=== PATIENT | male | born 1930 | race Caucasian/White ===

== ENCOUNTER 2018-10-22 12:19 | Outpatient (CLI) | payer MEDICARE, OTHER ==
--- NOTE | 2018-10-22 14:39 | CT ---
CT HEAD WITHOUT CONTRAST: 10/22/2018 HISTORY: Fall one week ago. COMPARISON: 05/17/2015 TECHNIQUE: Axial CT imaging at 5 mm intervals, from the vertex through the skull base, with coronal and sagittal reformatted imaging. FINDINGS: There is a new acute subdural hematoma on the left. There is a component in the left frontotemporal region, measuring 8-9 mm in transverse dimension, and there is a component in the left temporal regio n, measuring 7 mm in transverse dimension. There is a probable small component along the anterior in terhemispheric fissure, on image 22, measuring 4 mm. There is small volume subarachnoid blood in the occipital region, on the left, on axial image 16. There is probable subarachnoid blood, of very sma ll volume, within the posterior aspect of the sylvian fissure, on the left. There is no midline shif t. There is mass effect with flattening of the body and atrium of the left lateral ventricle. There is small volume intraventricular hemorrhage within the atrium of the left lateral ventricle. The imaged paranasal sinuses and mastoid air cells are well aerated. There is no displaced calvarium fracture. There is prominent degenerative change at the craniocervical junction, incompletely asses sed on this examination. There is polypoid mucosal thickening involving the maxillary sinus on the left. There is moderate cerebral volume loss. There is periventricular white matter hypodensity, and there is evidence of prior infarction in the parietal and frontal regions, on the right, IMPRESSION: Acute subarachnoid and subdural hemorrhage on the left. Small volume intraventricular hemorrhage on the left. Associated mass effect noted with flattening of the atrium of the left lateral ventricle. Dr. Urbina in the ER made aware at 12:58 p.m. on 10/22/2018. CODE CR POS: BERTHA
== END 2018-10-22 12:20 | disposition home or self-care (01) ==
LOC: NAV RAD 12:19
PROVIDERS: ATTEND Internal Medicine
DX: S09.90XD Unspecified injury of head, subsequent encounter (principal); S06.5X9D Traumatic subdural hemorrhage with loss of consciousness of unspecified duration, subsequent encounter; S06.6X9D Traumatic subarachnoid hemorrhage with loss of consciousness of unspecified duration, subsequent encounter
CPT/HCPCS: 70450

== ENCOUNTER 2018-10-22 12:40 | Emergency (ER) | payer MEDICARE, OTHER | END 2018-10-22 13:59 | disposition short-term general hospital (02) | LOC: NAV ER/OP 12:40 → NAV ERS 12:40 → EDSTATUS 13:04 → NAV ERS 13:59 | DX: S06.5X9A Traumatic subdural hemorrhage with loss of consciousness of unspecified duration, initial encounter (principal); S06.6X9A Traumatic subarachnoid hemorrhage with loss of consciousness of unspecified duration, initial encounter; I48.91 Unspecified atrial fibrillation; K21.9 Gastro-esophageal reflux disease without esophagitis; I10 Essential (primary) hypertension; M10.9 Gout, unspecified; Z87.891 Personal history of nicotine dependence; Z79.899 Other long term (current) drug therapy; Z79.82 Long term (current) use of aspirin; W06.XXXA Fall from bed, initial encounter | CPT/HCPCS: 70450 ==

== ENCOUNTER 2018-10-24 21:16 | Inpatient (IN) | payer MEDICARE, OTHER ==
[2018-10-24 22:35] VITALS: BMI 23.8
[2018-10-24] MEDS ORDERED: cefTRIAXone\\ROCEPHIN 1 GM in Sodium Chloride 0.9% 100 ML IVPB SCH (23:45)
[2018-10-25] MEDS ORDERED: Polyethylene Glycol 3350 17 GM Packet PO PRN (00:03)
[2018-10-25] MEDS: hydrALAZINE 25 MG TAB PO PRN ×2 (02:04→09:31)
[2018-10-25] MEDS: Multivitamin W/ Minerals 1 TAB PO SCH (09:31)
[2018-10-25] MEDS: Brimonidine Tartrate 0.2% Ophth Soln 5 ml Bottle EA EYE SCH ×3 (09:31→21:21)
[2018-10-25] MEDS: Allopurinol 100 MG TAB PO SCH (09:32)
[2018-10-25] MEDS: Potassium Chloride 20 MEQ TAB PO SCH (09:32)
[2018-10-25] MEDS: Carvedilol 25 MG TAB PO SCH ×2 (09:33→21:20)
[2018-10-25] MEDS: Escitalopram Oxalate 10 mg Tablet PO SCH (09:33)
[2018-10-25] MEDS: Ascorbic Acid 500 mg Chewable Tablet PO SCH ×2 (09:33→21:20)
[2018-10-25] MEDS: Amiodarone 200 MG TAB PO SCH (09:33)
[2018-10-25] MEDS: Folic Acid 1 MG TAB PO SCH (09:33)
[2018-10-25] MEDS: Lisinopril 20 MG TAB PO SCH (09:33)
[2018-10-25] MEDS: Mupirocin 2% Ointment 22 GM Tube TOP SCH (09:34)
[2018-10-25] MEDS: Dorzolamide HCl 2% Ophth Soln 10 ml Bottle EA EYE SCH ×3 (09:34→21:21)
[2018-10-25] MEDS: cefTRIAXone\\ROCEPHIN 1 GM in Sodium Chloride 0.9% 100 ML IVPB SCH (09:46)
--- NOTE | 2018-10-25 12:51 | PRG ---
DATE OF SERVICE: 10/25/2018 SUBJECTIVE: The patient feels well, sitting up, visiting with family, answering questions when spoken, but not volunteering to speak. He does appear to be appropriate, slept well through the night, ate well today. OBJECTIVE: VITAL SIGNS: Shows temperature is 97.4, blood pressure 176/84, respirations 20, O2 saturations 93% on room air. LUNGS: Clear. CARDIAC: Showed regular rhythm. ABDOMEN: Soft and nontender with PEG tube in place. SKIN/EXTREMITIES: Showed no edema, clubbing, or cyanosis. NEUROLOGICAL: Shows left-sided weakness, altered mental status with the patient oriented to person and place, and slow responses and significant difficulty with ataxia and disequilibrium. ASSESSMENT: 1. Acute subdural hematoma, being monitored closely, follow up with Neurosurgery in 2 to 3 weeks. 2. Labile hypertension, on carvedilol and lisinopril with p.r.n. hydralazine, and we will monitor closely. 3. History of aspiration pneumonia with no recurrent. We will monitor closely on regular diet. 4. Benign prostatic hypertrophy, stable with no evidence of retention. PLAN: 1. Continue PT/OT. 2. Continue to monitor vital signs closely for orthostasis. 3. Continue to monitor for aspiration. 4. We will treat escherichia coli urinary tract infection with Rocephin as resistant to oral antibiotics. Job ID: [id number]
--- NOTE | 2018-10-25 13:46 | HP ---
CHIEF COMPLAINT: Subdural hematoma. HISTORY OF PRESENT ILLNESS: The patient is an unfortunate 88-year-old white male who has undergone a left carotid endarterectomy 6 months ago with subsequent intraoperative stroke with right hemiparesis with right arm weakness and facial droop and slurred speech, which has improved greatly over the last several months in rehab. He did have complications of atrial fib in the past, but has not recurred in several months, but was still on only on beta blockade, but no amiodarone because of severe bradycardia. He was not on any anticoagulation because of risk of falling. He, however, was doing well at home when apparently he fell out of bed, hit the left side of his face. Several days prior to being seen in the office with no change in his focal findings, but with increased agitation and weakness, subsequently was sent to the ER, had a CT scan which showed a left traumatic subarachnoid hemorrhage and small subdural hematoma with no shift. He was admitted to [facility] where Neurosurgery felt that he was stable, followed him for several days, and then transferred him to [facility] for continued monitoring. PAST MEDICAL HISTORY: Also remarkable for labile hypertension, requirement of a PEG tube because of difficulty swallowing in the past with aspiration, but no recurrence at this time. He also has a history of benign prostatic hypertrophy, anxiety, gastroesophageal reflux, and macular degeneration. PAST SURGICAL HISTORY: Positive for the above-mentioned left carotid endarterectomy in 2018, right carpal tunnel surgery, and left knee surgery. FAMILY MEDICAL HISTORY: Positive for heart disease in mother. SOCIAL HISTORY: No alcohol or drug use, but did smoke until 20 years ago. Lives at home with his and [id number]. REVIEW OF SYSTEMS: Essentially negative, but the patient is a poor historian, and most history obtained from the . Typically, he denies headache or dizziness. PULMONARY: Denies cough, sputum production, or pneumonia. CARDIOVASCULAR: Denies chest pain, orthopnea, paroxysmal nocturnal dyspnea, or edema. GASTROINTESTINAL: Denies nausea or vomiting. SKIN/EXTREMITIES: Denies pain, but does have stiffness. NEUROLOGIC: Has some mild left-sided weakness, chronic from previous old CVA. PHYSICAL EXAMINATION: GENERAL: The patient is an elderly white male, lying in bed, no acute distress, oriented to person and place. VITAL SIGNS: Blood pressure is 162/91, temperature is 98, pulse 66, respirations 18, and O2 saturation is 93% on room air. LUNGS: Clear. CARDIAC: Showed regular rhythm. No S4. No other gallops or murmurs. ABDOMEN: Shows PEG tube in place, not being used, but being flushed. Soft, nontender. No masses or organomegaly. SKIN/EXTREMITIES: Show no edema, clubbing, or cyanosis. HEENT: Shows pupils are equal, round, and reactive to light and accommodation. There is a fading ecchymosis over the left periorbital area. NEUROLOGIC: Shows mild left-sided weakness, but the patient is slow in his responses, but appears to be appropriate and is oriented to person and possibly place. ASSESSMENT: 1. An 88-year-old white male with a history of a distant cerebrovascular accident, who has fallen and suffered a left subarachnoid hemorrhage and subdural hemorrhage. He has been felt to be stable by Neurosurgery and be admitted to [facility] to be monitored with PT and OT. He has no complaints, at this times appears to be more alert, but is still only speaking in single words. 2. Hypertension, labile, but controlled at this time on carvedilol and lisinopril. We will monitor for bradycardia and hypotension. 3. History of aspiration pneumonia, resolved now. Tolerating diet well with PEG tube in place and to be removed in the next month or 2. 4. Paroxysmal atrial fibrillation with no evidence of recurrence, only on beta blockade, and no anticoagulation. PLAN: 1. Continue PT and OT. 2. Continue to monitor vital signs and treat blood pressure accordingly. 3. Continue to monitor for aspiration. 4. Continue stress ulcer prophylaxis. Job ID: [id number]
[2018-10-25] MEDS: Tamsulosin HCl 0.4 MG CAP PO SCH (21:20)
[2018-10-25] MEDS: Atorvastatin Calcium 10 MG TAB PO SCH (21:20)
[2018-10-25] MEDS: Finasteride 5 MG TAB PO SCH (21:20)
[2018-10-25] MEDS: Famotidine 20 MG TAB PO SCH (21:20)
[2018-10-25] MEDS: Acetaminophen 325 MG TAB PO PRN (21:20)
[2018-10-25] MEDS: Melatonin 3 MG TAB PO PRN (21:20)
[2018-10-25] MEDS: risperiDONE 0.25 MG TAB PO SCH (21:20)
[2018-10-26] MEDS: Escitalopram Oxalate 10 mg Tablet PO SCH (09:02)
[2018-10-26] MEDS: Amiodarone 200 MG TAB PO SCH (09:02)
[2018-10-26] MEDS: Carvedilol 25 MG TAB PO SCH ×2 (09:02→20:04)
[2018-10-26] MEDS: Multivitamin W/ Minerals 1 TAB PO SCH (09:02)
[2018-10-26] MEDS: Allopurinol 100 MG TAB PO SCH (09:02)
[2018-10-26] MEDS: Dorzolamide HCl 2% Ophth Soln 10 ml Bottle EA EYE SCH ×3 (09:02→20:04)
[2018-10-26] MEDS: Lisinopril 20 MG TAB PO SCH (09:02)
[2018-10-26] MEDS: Ascorbic Acid 500 mg Chewable Tablet PO SCH ×2 (09:02→20:05)
[2018-10-26] MEDS: Brimonidine Tartrate 0.2% Ophth Soln 5 ml Bottle EA EYE SCH ×3 (09:02→20:04)
[2018-10-26] MEDS: Folic Acid 1 MG TAB PO SCH (09:02)
[2018-10-26] MEDS: Potassium Chloride 20 MEQ TAB PO SCH (09:02)
[2018-10-26] MEDS: cefTRIAXone\\ROCEPHIN 1 GM in Sodium Chloride 0.9% 100 ML IVPB SCH (09:03)
[2018-10-26] MEDS: Mupirocin 2% Ointment 22 GM Tube TOP SCH (09:03)
--- NOTE | 2018-10-26 15:41 | PRG ---
DATE OF SERVICE: 10/26/2018 SUBJECTIVE: Mr. Vazquez is resting comfortably in bed, just finished his bath. His is in the room. No concerns or questions. Discussed with nursing as well. OBJECTIVE: VITAL SIGNS: He is afebrile. Heart rate 63, respirations 20, oxygen saturation 94% on room air, and blood pressure 150/70. CARDIOVASCULAR: S1 and S2 plus. RESPIRATORY: Normal vesicular breath sounds. ABDOMEN: Soft, nontender. Bowel sounds in all quadrants. G-tube in place. EXTREMITIES: Without cyanosis or clubbing. Peripheral pulses are palpable, but decreased. CENTRAL NERVOUS SYSTEM: Awake and responsive. Generalized weakness. IMPRESSION: 1. Hypertension. 2. Dysphagia, requiring PEG tube placement. 3. Benign prostatic hypertrophy. 4. Gastroesophageal reflux disease. 5. Macular degeneration. 6. Carotid artery stenosis, status post carotid endarterectomy, resulting in an intraoperative stroke and right-sided hemiparesis. PLAN: 1. Continue current medications. 2. Nutritional support. 3. Aspiration precautions. 4. PEG tube care. 5. DVT and stress ulcer prophylaxis. 6. Decubitus precautions. 7. Physical therapy. 8. Routine laboratory values. 9. Discussed with the patient and spouse in detail. All questions answered. Job ID: [id number]
[2018-10-26] MEDS: risperiDONE 0.25 MG TAB PO SCH (20:04)
[2018-10-26] MEDS: Finasteride 5 MG TAB PO SCH (20:05)
[2018-10-26] MEDS: Tamsulosin HCl 0.4 MG CAP PO SCH (20:05)
[2018-10-26] MEDS: Famotidine 20 MG TAB PO SCH (20:05)
[2018-10-26] MEDS: Atorvastatin Calcium 10 MG TAB PO SCH (20:05)
[2018-10-26] MEDS: Melatonin 3 MG TAB PO PRN (20:05)
[2018-10-26] MEDS: Acetaminophen 325 MG TAB PO PRN (20:05)
[2018-10-27] MEDS: Brimonidine Tartrate 0.2% Ophth Soln 5 ml Bottle EA EYE SCH ×3 (09:16→20:50)
[2018-10-27] MEDS: Mupirocin 2% Ointment 22 GM Tube TOP SCH (09:18)
[2018-10-27] MEDS: Folic Acid 1 MG TAB PO SCH (09:19)
[2018-10-27] MEDS: Allopurinol 100 MG TAB PO SCH (09:19)
[2018-10-27] MEDS: Amiodarone 200 MG TAB PO SCH (09:20)
[2018-10-27] MEDS: Lisinopril 20 MG TAB PO SCH (09:20)
[2018-10-27] MEDS: Escitalopram Oxalate 10 mg Tablet PO SCH (09:20)
[2018-10-27] MEDS: Ascorbic Acid 500 mg Chewable Tablet PO SCH ×2 (09:21→20:48)
[2018-10-27] MEDS: Multivitamin W/ Minerals 1 TAB PO SCH (09:22)
[2018-10-27] MEDS: Potassium Chloride 20 MEQ TAB PO SCH (09:22)
[2018-10-27] MEDS: Carvedilol 25 MG TAB PO SCH ×2 (09:22→20:49)
[2018-10-27] MEDS: Dorzolamide HCl 2% Ophth Soln 10 ml Bottle EA EYE SCH ×3 (09:28→20:50)
[2018-10-27] MEDS: cefTRIAXone\\ROCEPHIN 1 GM in Sodium Chloride 0.9% 100 ML IVPB SCH (09:40)
[2018-10-27] MEDS: Acetaminophen 325 MG TAB PO PRN (17:47)
[2018-10-27] MEDS: Finasteride 5 MG TAB PO SCH (20:48)
[2018-10-27] MEDS: risperiDONE 0.25 MG TAB PO SCH (20:48)
[2018-10-27] MEDS: Tamsulosin HCl 0.4 MG CAP PO SCH (20:49)
[2018-10-27] MEDS: Atorvastatin Calcium 10 MG TAB PO SCH (20:49)
[2018-10-27] MEDS: Melatonin 3 MG TAB PO PRN (20:49)
[2018-10-27] MEDS: Famotidine 20 MG TAB PO SCH (20:49)
[2018-10-28] MEDS: cefTRIAXone\\ROCEPHIN 1 GM in Sodium Chloride 0.9% 100 ML IVPB SCH (08:35)
[2018-10-28] MEDS: Brimonidine Tartrate 0.2% Ophth Soln 5 ml Bottle EA EYE SCH ×3 (08:51→20:50)
[2018-10-28] MEDS: Dorzolamide HCl 2% Ophth Soln 10 ml Bottle EA EYE SCH ×3 (08:52→20:50)
[2018-10-28] MEDS: Escitalopram Oxalate 10 mg Tablet PO SCH (08:52)
[2018-10-28] MEDS: Folic Acid 1 MG TAB PO SCH (08:53)
[2018-10-28] MEDS: Lisinopril 20 MG TAB PO SCH (08:53)
[2018-10-28] MEDS: Amiodarone 200 MG TAB PO SCH (08:54)
[2018-10-28] MEDS: Carvedilol 25 MG TAB PO SCH ×2 (08:54→20:49)
[2018-10-28] MEDS: Allopurinol 100 MG TAB PO SCH (08:54)
[2018-10-28] MEDS: Ascorbic Acid 500 mg Chewable Tablet PO SCH ×3 (08:54→20:49)
[2018-10-28] MEDS: Multivitamin W/ Minerals 1 TAB PO SCH (09:00)
[2018-10-28] MEDS: Potassium Chloride 20 MEQ TAB PO SCH (09:00)
[2018-10-28] MEDS: Mupirocin 2% Ointment 22 GM Tube TOP SCH (09:19)
--- NOTE | 2018-10-28 18:20 | PRG ---
DATE OF SERVICE: 10/28/2018 SUBJECTIVE: The patient is an 88-year-old white male with a history of a distant CVA, who has fall and then suffered a subarachnoid and subdural traumatic hemorrhage, which appears to be stable according to Neurosurgery and was admitted to the [facility] for continued PT and monitoring. At this time, the patient is awake and responsive, still somewhat sedated from previous visit last week prior to fall, but is having no nausea or headache. Has been cooperating minimally with PT, but is a total assist for transfer at this time. OBJECTIVE: VITAL SIGNS: Show blood pressure is 150/67, temperature is 99.7, pulse 58, respirations 20, and O2 saturation is 92% on room air. LUNGS: Clear. CARDIAC: Showed regular rhythm. ABDOMEN: Soft and nontender with no masses or organomegaly. SKIN/EXTREMITIES: Display no edema, clubbing, or cyanosis. There is a fading ecchymosis over the left side of the face. NEUROLOGIC: Shows no focal findings with diffusely decreased strength. Significant ataxia. Cranial nerves appear to be showing only mild right-sided facial weakness. ASSESSMENT: 1. Stable subdural and subarachnoid hemorrhage, status post fall. 2. Stable old cerebrovascular accident with improving left hemiparesis. 3. Resolved aspiration. 4. Stable benign prostatic hypertrophy. 5. Stable right hemiparesis. PLAN: 1. Continue PT and OT. Continue oral intake as the patient is safe, but with aspiration precaution. 2. Continue stress ulcer prophylaxis with no DVT prophylaxis, secondary to recent traumatic hemorrhage. Job ID: [id number]
--- NOTE | 2018-10-28 18:27 | PRG ---
DATE OF SERVICE: 10/28/2018 SUBJECTIVE: The patient feels well, awake, and alert. Walks with therapy today with only standby assistance. Appears to be much stronger. He is eating well and much more responsive and appears to be more coherent. OBJECTIVE: VITAL SIGNS: Show blood pressure is 175/87, O2 sats 94% on room air with temperature is 97.9, pulse 62, respirations 20, and O2 sat is 94% on room air. LUNGS: Clear. CARDIAC: Showed regular rhythm. ABDOMEN: Soft and nontender with no masses or organomegaly. SKIN/EXTREMITIES: Display no edema, clubbing, or cyanosis. There is fading ecchymosis over left side of the face. NEUROLOGIC: Shows mild right-sided weakness with improving ataxia. ASSESSMENT: 1. Resolving subdural, subarachnoid hemorrhage. 2. Stable cerebrovascular accident with improving right-sided hemiparesis. 3. Significant hypertension with labile hypertension in the past, now on p.r.n. hydralazine, routine lisinopril, and routine carvedilol. PLAN: 1. Continue blood pressure medicines or monitor closely with orthostatic changes. 2. Continue PT, OT. 3. Continue to monitor for aspiration. 4. Continue stress ulcer prophylaxis. Job ID: [id number]
[2018-10-28] MEDS: Finasteride 5 MG TAB PO SCH (20:48)
[2018-10-28] MEDS: Famotidine 20 MG TAB PO SCH (20:48)
[2018-10-28] MEDS: Tamsulosin HCl 0.4 MG CAP PO SCH (20:48)
[2018-10-28] MEDS: Melatonin 3 MG TAB PO PRN (20:49)
[2018-10-28] MEDS: risperiDONE 0.25 MG TAB PO SCH (20:49)
[2018-10-28] MEDS: Atorvastatin Calcium 10 MG TAB PO SCH (20:49)
[2018-10-29] MEDS: Brimonidine Tartrate 0.2% Ophth Soln 5 ml Bottle EA EYE SCH ×3 (09:38→21:20)
[2018-10-29] MEDS: Acetaminophen 325 MG TAB PO PRN (09:38)
[2018-10-29] MEDS: Mupirocin 2% Ointment 22 GM Tube TOP SCH (09:38)
[2018-10-29] MEDS: Folic Acid 1 MG TAB PO SCH (09:38)
[2018-10-29] MEDS: Multivitamin W/ Minerals 1 TAB PO SCH (09:38)
[2018-10-29] MEDS: Potassium Chloride 20 MEQ TAB PO SCH (09:38)
[2018-10-29] MEDS: Amiodarone 200 MG TAB PO SCH (09:38)
[2018-10-29] MEDS: Dorzolamide HCl 2% Ophth Soln 10 ml Bottle EA EYE SCH ×3 (09:38→21:20)
[2018-10-29] MEDS: Lisinopril 20 MG TAB PO SCH (09:38)
[2018-10-29] MEDS: Carvedilol 25 MG TAB PO SCH ×2 (09:38→21:20)
[2018-10-29] MEDS: Allopurinol 100 MG TAB PO SCH (09:39)
[2018-10-29] MEDS: Ascorbic Acid 500 mg Chewable Tablet PO SCH ×2 (09:39→21:20)
[2018-10-29] MEDS: cefTRIAXone\\ROCEPHIN 1 GM in Sodium Chloride 0.9% 100 ML IVPB SCH (09:50)
[2018-10-29] MEDS ORDERED: Escitalopram Oxalate 20 mg Tablet PO SCH (10:00)
[2018-10-29] MEDS: Escitalopram Oxalate 10 mg Tablet PO SCH (10:19)
[2018-10-29] MEDS: Melatonin 3 MG TAB PO PRN (21:19)
[2018-10-29] MEDS: Famotidine 20 MG TAB PO SCH (21:19)
[2018-10-29] MEDS: Atorvastatin Calcium 10 MG TAB PO SCH (21:20)
[2018-10-29] MEDS: risperiDONE 0.25 MG TAB PO SCH (21:20)
[2018-10-29] MEDS: Finasteride 5 MG TAB PO SCH (21:20)
[2018-10-29] MEDS: Tamsulosin HCl 0.4 MG CAP PO SCH (21:20)
--- NOTE | 2018-10-30 08:27 | PRG ---
DATE OF SERVICE: 10/29/2018 SUBJECTIVE: The patient has not had therapy today but is awake, alert, and ready for therapy, has eaten well. OBJECTIVE: VITAL SIGNS: Show his blood pressure is 177/88, temperature is 98, pulse 62, respirations 18, O2 saturation is 95%. LUNGS: Clear. CARDIAC: Showed regular rhythm. ABDOMEN: Soft and nontender. NEUROLOGICAL: The patient is awake, alert, slow in his response. Appears close to baseline, although very weak. Still having some mild right-sided weakness. ASSESSMENT: 1. Resolving subdural hematoma with increasing strength, returning to baseline mental status. 2. Still persistent hypertension, labile. We will monitor closely on medications of carvedilol 25 twice daily and lisinopril 20 daily and may need low-dose amlodipine. PLAN: 1. Continue to monitor vital signs closely. 2. Continue PT/OT. 3. Discuss improvement with PT and OT. 4. Continue to monitor for aspiration. Job ID: [id number]
--- NOTE | 2018-10-30 08:49 | PRG ---
DATE OF SERVICE: 10/30/2018 SUBJECTIVE: The patient feels well, lying in bed, about to eat breakfast. No complaints. He has not had therapy yet today. OBJECTIVE: VITAL SIGNS: Blood pressure is normal this morning at 150/80, but was elevated to 188/91 last night. Temperature 97, pulse 64, respirations 18, and O2 sats 95% on room air. LUNGS: Clear. CARDIAC: Regular rhythm. ABDOMEN: Soft and nontender. NEUROLOGICAL: Mild right-sided weakness with diffuse generalized discoordination and mild confusion close to baseline. ASSESSMENT: 1. Resolving subdural hematoma and subarachnoid hemorrhage. 2. Persistent elevated blood pressure in the afternoon. Start on amlodipine 2.5 mg at night. 3. Stable old cerebrovascular accident with no problems with aspiration or aphasia. PLAN: 1. Continue PT/OT. 2. Continue to monitor vital signs for orthostasis, blood pressures on new medication of amlodipine 2.5 mg at night in addition to carvedilol and lisinopril. Job ID: [id number]
[2018-10-30] MEDS ORDERED: Escitalopram Oxalate 20 mg Tablet PO SCH (09:00)
[2018-10-30] MEDS: Carvedilol 25 MG TAB PO SCH ×2 (09:08→20:44)
[2018-10-30] MEDS: Lisinopril 20 MG TAB PO SCH (09:08)
[2018-10-30] MEDS: Mupirocin 2% Ointment 22 GM Tube TOP SCH (09:08)
[2018-10-30] MEDS: Dorzolamide HCl 2% Ophth Soln 10 ml Bottle EA EYE SCH ×3 (09:08→20:48)
[2018-10-30] MEDS: Allopurinol 100 MG TAB PO SCH (09:08)
[2018-10-30] MEDS: cefTRIAXone\\ROCEPHIN 1 GM in Sodium Chloride 0.9% 100 ML IVPB SCH (09:08)
[2018-10-30] MEDS: Brimonidine Tartrate 0.2% Ophth Soln 5 ml Bottle EA EYE SCH ×3 (09:08→20:43)
[2018-10-30] MEDS: Multivitamin W/ Minerals 1 TAB PO SCH (09:09)
[2018-10-30] MEDS: Amiodarone 200 MG TAB PO SCH (09:09)
[2018-10-30] MEDS: Potassium Chloride 20 MEQ TAB PO SCH (09:09)
[2018-10-30] MEDS: Folic Acid 1 MG TAB PO SCH (09:09)
[2018-10-30] MEDS: Ascorbic Acid 500 mg Chewable Tablet PO SCH ×2 (09:09→20:44)
[2018-10-30] MEDS: hydrALAZINE 25 MG TAB PO PRN (09:15)
[2018-10-30] MEDS ORDERED: Escitalopram Oxalate 10 mg Tablet PO SCH (10:15)
[2018-10-30] MEDS: Acetaminophen 325 MG TAB PO PRN (10:57)
[2018-10-30] MEDS: Atorvastatin Calcium 10 MG TAB PO SCH (20:44)
[2018-10-30] MEDS: Amlodipine 5 MG TAB PO SCH (20:46)
[2018-10-30] MEDS: risperiDONE 0.25 MG TAB PO SCH (20:47)
[2018-10-30] MEDS: Finasteride 5 MG TAB PO SCH (20:47)
[2018-10-30] MEDS: Famotidine 20 MG TAB PO SCH (20:47)
[2018-10-30] MEDS: Tamsulosin HCl 0.4 MG CAP PO SCH (20:47)
[2018-10-31] MEDS: Lisinopril 20 MG TAB PO SCH (09:25)
[2018-10-31] MEDS: Potassium Chloride 20 MEQ TAB PO SCH (09:25)
[2018-10-31] MEDS: Multivitamin W/ Minerals 1 TAB PO SCH (09:25)
[2018-10-31] MEDS: Ascorbic Acid 500 mg Chewable Tablet PO SCH ×2 (09:25→20:43)
[2018-10-31] MEDS: Folic Acid 1 MG TAB PO SCH (09:25)
[2018-10-31] MEDS: Allopurinol 100 MG TAB PO SCH (09:25)
[2018-10-31] MEDS: Amiodarone 200 MG TAB PO SCH (09:25)
[2018-10-31] MEDS: Dorzolamide HCl 2% Ophth Soln 10 ml Bottle EA EYE SCH ×3 (09:26→20:51)
[2018-10-31] MEDS: Carvedilol 25 MG TAB PO SCH ×2 (09:26→20:43)
[2018-10-31] MEDS: Brimonidine Tartrate 0.2% Ophth Soln 5 ml Bottle EA EYE SCH ×3 (09:26→20:41)
[2018-10-31] MEDS: Mupirocin 2% Ointment 22 GM Tube TOP SCH (09:27)
[2018-10-31] MEDS ORDERED: Sodium Chloride 0.9% 10 ML ONE (09:32)
[2018-10-31] MEDS: Escitalopram Oxalate 10 mg Tablet PO SCH (09:33)
[2018-10-31] MEDS: cefTRIAXone\\ROCEPHIN 1 GM in Sodium Chloride 0.9% 100 ML IVPB SCH (09:33)
[2018-10-31] MEDS: Famotidine 20 MG TAB PO SCH (20:41)
[2018-10-31] MEDS: Melatonin 3 MG TAB PO PRN (20:42)
[2018-10-31] MEDS: risperiDONE 0.25 MG TAB PO SCH (20:42)
[2018-10-31] MEDS: Amlodipine 5 MG TAB PO SCH (20:42)
[2018-10-31] MEDS: Atorvastatin Calcium 10 MG TAB PO SCH (20:42)
[2018-10-31] MEDS: Tamsulosin HCl 0.4 MG CAP PO SCH (20:43)
[2018-10-31] MEDS: Finasteride 5 MG TAB PO SCH (20:43)
[2018-11-01] MEDS: Multivitamin W/ Minerals 1 TAB PO SCH (10:02)
[2018-11-01] MEDS: Dorzolamide HCl 2% Ophth Soln 10 ml Bottle EA EYE SCH ×3 (10:03→21:09)
[2018-11-01] MEDS: Folic Acid 1 MG TAB PO SCH (10:03)
[2018-11-01] MEDS: Ascorbic Acid 500 mg Chewable Tablet PO SCH ×2 (10:04→21:10)
[2018-11-01] MEDS: Escitalopram Oxalate 10 mg Tablet PO SCH (10:05)
[2018-11-01] MEDS: Lisinopril 20 MG TAB PO SCH (10:05)
[2018-11-01] MEDS: Brimonidine Tartrate 0.2% Ophth Soln 5 ml Bottle EA EYE SCH ×3 (10:06→21:09)
[2018-11-01] MEDS: Amiodarone 200 MG TAB PO SCH (10:06)
[2018-11-01] MEDS: Carvedilol 25 MG TAB PO SCH ×2 (10:07→21:10)
[2018-11-01] MEDS: Allopurinol 100 MG TAB PO SCH (10:07)
[2018-11-01] MEDS: cefTRIAXone\\ROCEPHIN 1 GM in Sodium Chloride 0.9% 100 ML IVPB SCH (10:11)
[2018-11-01] MEDS: Mupirocin 2% Ointment 22 GM Tube TOP SCH (10:35)
[2018-11-01] MEDS: Potassium Chloride 20 MEQ TAB PO SCH (10:36)
[2018-11-01] MEDS: Acetaminophen 325 MG TAB PO PRN (14:54)
--- NOTE | 2018-11-01 19:30 | PRG ---
DATE OF SERVICE: 10/31/2018 SUBJECTIVE: The patient feels well, did not have therapy today, but is getting stronger and up all days and has been eating well with his . OBJECTIVE: VITAL SIGNS: Show temperature 98.2, blood pressure 165/71, pulse 67, respirations 20, O2 saturations 93% on room air. LUNGS: Clear. CARDIAC: Regular rhythm. ABDOMEN: Soft and nontender. EXTREMITIES: No edema, clubbing, or cyanosis. ASSESSMENT: 1. Resolving subdural hematoma and hemorrhage. 2. Stable old cerebrovascular accident. 3. Improving deconditioning. PLAN: Continue PT/OT. Continue to monitor for aspiration. Continue to monitor vital signs closely. Job ID: [id number]
--- NOTE | 2018-11-01 19:54 | PRG ---
DATE OF SERVICE: 11/01/2018 SUBJECTIVE: The patient feels well, visiting with , who is concerned about a possible recurrent urinary tract infection and discussed pros and cons of prophylactic antibiotics. Also concerned about flushing of his G-tube as it has not been used or flushed. The patient is eating well with no cough or aspiration. OBJECTIVE: The patient, however, did have flushing done today with no difficulty. ASSESSMENT: 1. Resolving subdural and subarachnoid hemorrhage with follow with Neurosurgery this week. 2. Aspiration precautions were there with recent aspiration. 3. Improving deconditioning. PLAN: 1. Flush G-tube with water twice daily, 30 mL every shift. 2. Calorie count by dietitian next week to ensure the patient getting enough nutrition without G-tube supplementation. 3. Repeat CBC and comp met in the a.m. Job ID: [id number]
[2018-11-01] MEDS: risperiDONE 0.25 MG TAB PO SCH (21:10)
[2018-11-01] MEDS: Tamsulosin HCl 0.4 MG CAP PO SCH (21:10)
[2018-11-01] MEDS: Famotidine 20 MG TAB PO SCH (21:10)
[2018-11-01] MEDS: Melatonin 3 MG TAB PO PRN (21:10)
[2018-11-01] MEDS: Finasteride 5 MG TAB PO SCH (21:10)
[2018-11-01] MEDS: Amlodipine 5 MG TAB PO SCH (21:11)
[2018-11-01] MEDS: Atorvastatin Calcium 10 MG TAB PO SCH (21:11)
[2018-11-02 05:33] LABS: #Basophils 0.1 thou/uL (0.0-0.2); #Eosinphils 0.4 thou/uL (0.0-0.7); #Lymphocytes 1.6 thou/uL (1.20-3.40); #Monocytes 1.1 thou/uL (0.11-0.59); #Neutrophils 5.6 thou/uL (1.40-6.50); %Basophils 1.2 % (0.0-1.0); %Eosinophils 4.2 % (0.0-10.0); %Lymphocytes 18.1 % (21.0-51.0); %Monocytes 12.1 % (0.0-10.0); %Neutrophils 64.4 % (42.0-75.0); Hemoglobin 9.4 g/dL (14.0-18.0); Mean Corpuscular HGB CONC 31.5 g/dL (32.0-36.0); Mean Corpuscular Hemoglobin 26.3 pg (27.0-31.0); Mean Corpuscular Volume 83.5 fL (78.0-98.0); Mean Platelet Volume 7.1 fL (7.4-10.4); Platelet Count 215 thou/uL (130-400); RBC Distribution Width 15.1 % (11.5-14.5); Red Blood Cell (RBC) Count 3.58 mill/uL (4.70-6.10); White Blood Cell (WBC) Count 8.7 thou/uL (4.8-10.8)
[2018-11-02 05:54] LABS: ALT (SGPT) 21 U/L (8-55); AST (SGOT) 20 U/L (5-34); Albumin 3.1 g/dL (3.4-4.8); Alkaline Phosphatase 81 U/L (40-150); Anion Gap 12 mmol/L (10-20); BUN (Urea Nitrogen) 21 mg/dL (8.4-25.7); Bilirubin, Total 0.3 mg/dL (0.2-1.2); Calc. Creatinine Clearance 46 mL/min (70-130); Calcium 9.6 mg/dL (7.8-10.44); Carbon Dioxide 27 mmol/L (23-31); Chloride 105 mmol/L (98-107); Estimated GFR-MDRD 59; Globulin 3.5 g/dL (2.4-3.5); Glucose 111 mg/dL (83-110); Potassium 3.6 mmol/L (3.5-5.1); Protein, Total 6.6 g/dL (5.8-8.1); Sodium 140 mmol/L (136-145)
[2018-11-02] MEDS: Dorzolamide HCl 2% Ophth Soln 10 ml Bottle EA EYE SCH ×3 (09:12→20:24)
[2018-11-02] MEDS: Brimonidine Tartrate 0.2% Ophth Soln 5 ml Bottle EA EYE SCH ×3 (09:12→20:24)
[2018-11-02] MEDS: Mupirocin 2% Ointment 22 GM Tube TOP SCH (09:13)
[2018-11-02] MEDS: Allopurinol 100 MG TAB PO SCH (09:13)
[2018-11-02] MEDS: Ascorbic Acid 500 mg Chewable Tablet PO SCH ×2 (09:13→20:25)
[2018-11-02] MEDS: Folic Acid 1 MG TAB PO SCH (09:13)
[2018-11-02] MEDS: Multivitamin W/ Minerals 1 TAB PO SCH (09:14)
[2018-11-02] MEDS: Lisinopril 20 MG TAB PO SCH (09:14)
[2018-11-02] MEDS: Amiodarone 200 MG TAB PO SCH (09:14)
[2018-11-02] MEDS: Potassium Chloride 20 MEQ TAB PO SCH (09:14)
[2018-11-02] MEDS: Carvedilol 25 MG TAB PO SCH ×2 (09:16→20:26)
[2018-11-02] MEDS: Escitalopram Oxalate 10 mg Tablet PO SCH (09:16)
--- NOTE | 2018-11-02 09:27 | PRG ---
DATE OF SERVICE: 11/02/2018 SUBJECTIVE: The patient is lying in the bed, resting with no complaints last night. No confusion or agitation. OBJECTIVE: VITAL SIGNS: Temperature 97.9, pulse 65, respirations 18, O2 saturations 93% on room air, and blood pressure 159/79. NEUROLOGIC: Shows diffusely increasing strength, decreased bilaterally, worse on the left side. LUNGS: Clear. CARDIAC: Regular rhythm. ABDOMEN: Soft and nontender. PEG tube is in place, being flushed. LABORATORY DATA: White count is 8700, hematocrit 29, and hemoglobin 9.4. Sodium is 140, potassium 3.6, chloride 105, bicarb 27, BUN 21, creatinine 1.17, and glucose 111. ASSESSMENT AND PLAN: 1. Resolving subdural and subarachnoid hemorrhage with followup with Dr. Blackwell later this week. 2. Aspiration precautions. 3. Flush G-tube with water. 4. Dietitian to start calorie count tomorrow to ensure if the patient is getting enough calories. Job ID: [id number]
[2018-11-02] MEDS: cefTRIAXone\\ROCEPHIN 1 GM in Sodium Chloride 0.9% 100 ML IVPB SCH (09:55)
[2018-11-02] MEDS: Finasteride 5 MG TAB PO SCH (20:25)
[2018-11-02] MEDS: Amlodipine 5 MG TAB PO SCH (20:25)
[2018-11-02] MEDS: Famotidine 20 MG TAB PO SCH (20:25)
[2018-11-02] MEDS: Atorvastatin Calcium 10 MG TAB PO SCH (20:26)
[2018-11-02] MEDS: risperiDONE 0.25 MG TAB PO SCH (20:26)
[2018-11-02] MEDS: Tamsulosin HCl 0.4 MG CAP PO SCH (20:26)
[2018-11-02] MEDS: Melatonin 3 MG TAB PO PRN (20:26)
[2018-11-03] MEDS: Lisinopril 20 MG TAB PO SCH (08:21)
[2018-11-03] MEDS: Multivitamin W/ Minerals 1 TAB PO SCH (08:21)
[2018-11-03] MEDS: Amiodarone 200 MG TAB PO SCH (08:21)
[2018-11-03] MEDS: Ascorbic Acid 500 mg Chewable Tablet PO SCH ×2 (08:21→21:09)
[2018-11-03] MEDS: Escitalopram Oxalate 10 mg Tablet PO SCH (08:21)
[2018-11-03] MEDS: Potassium Chloride 20 MEQ TAB PO SCH (08:21)
[2018-11-03] MEDS: Folic Acid 1 MG TAB PO SCH (08:21)
[2018-11-03] MEDS: Carvedilol 25 MG TAB PO SCH ×2 (08:21→21:10)
[2018-11-03] MEDS: Allopurinol 100 MG TAB PO SCH (08:23)
[2018-11-03] MEDS: Brimonidine Tartrate 0.2% Ophth Soln 5 ml Bottle EA EYE SCH ×3 (08:24→21:09)
[2018-11-03] MEDS: Mupirocin 2% Ointment 22 GM Tube TOP SCH (08:24)
[2018-11-03] MEDS: Dorzolamide HCl 2% Ophth Soln 10 ml Bottle EA EYE SCH ×3 (08:26→21:09)
[2018-11-03] MEDS: cefTRIAXone\\ROCEPHIN 1 GM in Sodium Chloride 0.9% 100 ML IVPB SCH (09:09)
[2018-11-03] MEDS: Acetaminophen 325 MG TAB PO PRN (11:10)
--- NOTE | 2018-11-03 18:02 | PRG ---
DATE OF SERVICE: 11/03/2018 SUBJECTIVE: The patient feels well, sitting up in a chair, eating supper with his . He has worked hard with Therapy twice today and has no complaints of headaches or dizziness. OBJECTIVE: His blood pressure is 159/80, temperature 97.6, pulse 65, respirations 20, O2 sats 93% on room air. Neurological shows generalized weakness improving with stable dysphagia and mild left-sided weakness. ASSESSMENT: 1. Resolving subdural and subarachnoid hemorrhage, with appointment with Dr. Blackwell in 2 days. 2. Distant cerebrovascular accident with distant left hemiparesis and dysphagia, stable with modified diet. 3. Hypertension, controlled to goal. PLAN: 1. Arrange for transportation to follow up with Dr. Blackwell on November 05 at 9 a.m. 2. Continue pureed diet with aspiration precautions and flushing G-tube with water. 3. Continue PT and OT. Job ID: [id number]
[2018-11-03] MEDS: Amlodipine 5 MG TAB PO SCH (21:09)
[2018-11-03] MEDS: Finasteride 5 MG TAB PO SCH (21:09)
[2018-11-03] MEDS: Famotidine 20 MG TAB PO SCH (21:09)
[2018-11-03] MEDS: Melatonin 3 MG TAB PO PRN (21:09)
[2018-11-03] MEDS: risperiDONE 0.25 MG TAB PO SCH (21:09)
[2018-11-03] MEDS: Atorvastatin Calcium 10 MG TAB PO SCH (21:10)
[2018-11-03] MEDS: Tamsulosin HCl 0.4 MG CAP PO SCH (21:10)
[2018-11-04] MEDS: Potassium Chloride 20 MEQ TAB PO SCH (09:24)
[2018-11-04] MEDS: Mupirocin 2% Ointment 22 GM Tube TOP SCH (09:24)
[2018-11-04] MEDS: cefTRIAXone\\ROCEPHIN 1 GM in Sodium Chloride 0.9% 100 ML IVPB SCH (09:24)
[2018-11-04] MEDS: Allopurinol 100 MG TAB PO SCH (09:24)
[2018-11-04] MEDS: Escitalopram Oxalate 10 mg Tablet PO SCH (09:25)
[2018-11-04] MEDS: Amiodarone 200 MG TAB PO SCH (09:25)
[2018-11-04] MEDS: Carvedilol 25 MG TAB PO SCH ×2 (09:25→21:01)
[2018-11-04] MEDS: Lisinopril 20 MG TAB PO SCH (09:25)
[2018-11-04] MEDS: Brimonidine Tartrate 0.2% Ophth Soln 5 ml Bottle EA EYE SCH ×3 (09:25→20:59)
[2018-11-04] MEDS: Multivitamin W/ Minerals 1 TAB PO SCH (09:25)
[2018-11-04] MEDS: Folic Acid 1 MG TAB PO SCH (09:25)
[2018-11-04] MEDS: Ascorbic Acid 500 mg Chewable Tablet PO SCH ×2 (09:25→21:01)
[2018-11-04] MEDS: Dorzolamide HCl 2% Ophth Soln 10 ml Bottle EA EYE SCH ×3 (09:25→21:00)
[2018-11-04] MEDS: Acetaminophen 325 MG TAB PO PRN (10:39)
[2018-11-04] MEDS: Famotidine 20 MG TAB PO SCH (21:00)
[2018-11-04] MEDS: Amlodipine 5 MG TAB PO SCH (21:00)
[2018-11-04] MEDS: Atorvastatin Calcium 10 MG TAB PO SCH (21:00)
[2018-11-04] MEDS: Melatonin 3 MG TAB PO PRN (21:00)
[2018-11-04] MEDS: risperiDONE 0.25 MG TAB PO SCH (21:01)
[2018-11-04] MEDS: Tamsulosin HCl 0.4 MG CAP PO SCH (21:01)
[2018-11-04] MEDS: Finasteride 5 MG TAB PO SCH (21:01)
[2018-11-05] MEDS: Brimonidine Tartrate 0.2% Ophth Soln 5 ml Bottle EA EYE SCH ×3 (07:55→21:09)
[2018-11-05] MEDS: Dorzolamide HCl 2% Ophth Soln 10 ml Bottle EA EYE SCH ×3 (07:56→21:09)
[2018-11-05] MEDS: Amiodarone 200 MG TAB PO SCH (07:58)
[2018-11-05] MEDS: Ascorbic Acid 500 mg Chewable Tablet PO SCH ×2 (07:58→21:10)
[2018-11-05] MEDS: Lisinopril 20 MG TAB PO SCH (07:58)
[2018-11-05] MEDS: Allopurinol 100 MG TAB PO SCH (07:58)
[2018-11-05] MEDS: Multivitamin W/ Minerals 1 TAB PO SCH (08:00)
[2018-11-05] MEDS: Folic Acid 1 MG TAB PO SCH (08:00)
[2018-11-05] MEDS: Escitalopram Oxalate 10 mg Tablet PO SCH (08:01)
[2018-11-05] MEDS: Potassium Chloride 20 MEQ TAB PO SCH (08:01)
[2018-11-05] MEDS: Carvedilol 25 MG TAB PO SCH ×2 (08:01→21:10)
[2018-11-05] MEDS: Acetaminophen 325 MG TAB PO PRN (13:24)
--- NOTE | 2018-11-05 19:28 | PRG ---
DATE OF SERVICE: 11/05/2018 SUBJECTIVE: The patient feels well, sitting up in bed, visiting with his . Has returned for seeing the ER neurosurgeon, having repeat CT scan, which showed persistent blood, but with no shift or intracranial hypertension, and no need for further therapy and follow up in 6 weeks. OBJECTIVE: VITAL SIGNS: His blood pressure is 105/56, temperature is 98, pulse 69, respirations 18, O2 sats 93% on room air. LUNGS: Clear. CARDIAC: Regular rhythm. ABDOMEN: Soft and nontender. ASSESSMENT: 1. Resolving subarachnoid subdural hemorrhage with some recent blood from 2 weeks ago with no shift. 2. Stable hypertension. 3. Cerebrovascular accident, improving, left hemiparesis and deconditioning. PLAN: Continue PT and OT. Continue off aspirin. Plan for discharge in the next 2 days. Job ID: [id number]
--- NOTE | 2018-11-05 19:32 | PRG ---
DATE OF SERVICE: 11/04/2018 SUBJECTIVE: The patient feels well, working with therapy. I discussed with therapy, feels that he should be ready to be discharged by the end of the week as he has reached his baseline and is able to assist with ADLs with a one-person assist. OBJECTIVE: VITAL SIGNS: Show his blood pressure is 161/82, O2 saturations 93%, respirations 20, and temperature 97.6. LUNGS: Clear. CARDIAC: Regular rhythm. ABDOMEN: Soft and nontender. SKIN/EXTREMITIES: Showed no edema, clubbing, or cyanosis. NEUROLOGIC: Shows mild left hemiparesis and some slurred speech. ASSESSMENT: 1. Resolving subarachnoid subdural hemorrhage. The patient is working with therapy. 2. Stable old CVA. 3. No further evidence of recurrent aspiration. 4. Deconditioning, improving. PLAN: Follow up with Dr. Blackwell tomorrow. Continue pureed diet. Aspiration precautions. Continue PT, OT. Job ID: [id number]
[2018-11-05] MEDS: Amlodipine 5 MG TAB PO SCH (21:10)
[2018-11-05] MEDS: Famotidine 20 MG TAB PO SCH (21:10)
[2018-11-05] MEDS: Tamsulosin HCl 0.4 MG CAP PO SCH (21:10)
[2018-11-05] MEDS: Atorvastatin Calcium 10 MG TAB PO SCH (21:10)
[2018-11-05] MEDS: risperiDONE 0.25 MG TAB PO SCH (21:10)
[2018-11-05] MEDS: Finasteride 5 MG TAB PO SCH (21:10)
[2018-11-05] MEDS: Melatonin 3 MG TAB PO PRN (21:10)
[2018-11-06] MEDS: Brimonidine Tartrate 0.2% Ophth Soln 5 ml Bottle EA EYE SCH ×3 (09:09→20:33)
[2018-11-06] MEDS: Dorzolamide HCl 2% Ophth Soln 10 ml Bottle EA EYE SCH ×3 (09:09→20:32)
[2018-11-06] MEDS: Amiodarone 200 MG TAB PO SCH (09:11)
[2018-11-06] MEDS: Carvedilol 25 MG TAB PO SCH ×2 (09:12→20:35)
[2018-11-06] MEDS: Allopurinol 100 MG TAB PO SCH (09:12)
[2018-11-06] MEDS: Ascorbic Acid 500 mg Chewable Tablet PO SCH ×2 (09:12→20:35)
[2018-11-06] MEDS: Lisinopril 20 MG TAB PO SCH (09:14)
[2018-11-06] MEDS: Folic Acid 1 MG TAB PO SCH (09:14)
[2018-11-06] MEDS: Escitalopram Oxalate 10 mg Tablet PO SCH (09:14)
[2018-11-06] MEDS: Multivitamin W/ Minerals 1 TAB PO SCH (09:20)
[2018-11-06] MEDS: Potassium Chloride 20 MEQ TAB PO SCH (09:20)
[2018-11-06] MEDS: Acetaminophen 325 MG TAB PO PRN ×2 (09:27→20:35)
[2018-11-06] MEDS: Amlodipine 5 MG TAB PO SCH (20:34)
[2018-11-06] MEDS: Melatonin 3 MG TAB PO PRN (20:34)
[2018-11-06] MEDS: Tamsulosin HCl 0.4 MG CAP PO SCH (20:35)
[2018-11-06] MEDS: Famotidine 20 MG TAB PO SCH (20:35)
[2018-11-06] MEDS: risperiDONE 0.25 MG TAB PO SCH (20:35)
[2018-11-06] MEDS: Atorvastatin Calcium 10 MG TAB PO SCH (20:36)
[2018-11-06] MEDS: Finasteride 5 MG TAB PO SCH (20:36)
--- NOTE | 2018-11-07 09:51 | PRG ---
DATE OF SERVICE: 11/06/2018 SUBJECTIVE: The patient feels well and is anticipating discharge tomorrow, cooperating with therapy. agrees that she is ready to take him home tomorrow. OBJECTIVE: VITAL SIGNS: Blood pressure is 138/61, temperature 97.5, pulse 68, respirations 18, and O2 sats 95% on room air. LUNGS: Clear. CARDIAC: Regular rhythm. ABDOMEN: Soft and nontender. SKIN/EXTREMITIES: No edema, clubbing or cyanosis. NEUROLOGICAL: Left hemiparesis with mild right facial droop and mild dysphasia. ASSESSMENT: 1. Resolving subarachnoid and subdural hemorrhage. 2. Stable cerebrovascular accident with left hemiparesis. 3. Stable hypertension. PLAN: 1. Continue PT/OT and discuss discharge planning. 2. Discharge in the a.m. 3. Discussed discharge medications with spouse. Job ID: [id number]
[2018-11-07] MEDS: Lisinopril 20 MG TAB PO SCH (09:56)
[2018-11-07] MEDS: Carvedilol 25 MG TAB PO SCH (09:57)
[2018-11-07] MEDS: Folic Acid 1 MG TAB PO SCH (09:57)
[2018-11-07] MEDS: Multivitamin W/ Minerals 1 TAB PO SCH (09:57)
[2018-11-07] MEDS: Allopurinol 100 MG TAB PO SCH (09:57)
[2018-11-07] MEDS: Dorzolamide HCl 2% Ophth Soln 10 ml Bottle EA EYE SCH (09:57)
[2018-11-07] MEDS: Ascorbic Acid 500 mg Chewable Tablet PO SCH (09:57)
[2018-11-07] MEDS: Potassium Chloride 20 MEQ TAB PO SCH (09:57)
[2018-11-07] MEDS: Brimonidine Tartrate 0.2% Ophth Soln 5 ml Bottle EA EYE SCH (09:57)
[2018-11-07] MEDS: Amiodarone 200 MG TAB PO SCH (09:57)
[2018-11-07] MEDS: Escitalopram Oxalate 10 mg Tablet PO SCH (09:57)
[2018-11-07] MEDS: Acetaminophen 325 MG TAB PO PRN (11:22)
[2018-11-07 12:10] VITALS: BP 177/91; TEMP 98.1
--- NOTE | 2018-11-08 01:35 | DIS ---
DATE OF ADMISSION: 10/24/2018 DATE OF DISCHARGE: 11/07/2018 FINAL DIAGNOSES: 1. Acute subdural and subarachnoid hemorrhage with no midline shift and stable mental status. 2. Distant cerebrovascular accident with left hemiparesis. 3. Hypertension. 4. Previous history of dysphagia, now tolerating mechanical soft diet with PEG tube still in place, but not being used. 5. BPH with lower tract obstructive symptoms, controlled with medication. 6. History of paroxysmal atrial fibrillation with no recurrence in months. HOSPITAL COURSE: Patient is a very pleasant 88-year-old white male who suffered an intraoperative cerebrovascular accident with left hemiparesis after left carotid endarterectomy with subsequent complications of dysphagia and aphasia requiring PEG tube placement and a long stay at rehab hospital. He subsequently has improved, was discharged home, was cooperating with the family with one-person assistance when he apparently fell out of bed, suffered a subarachnoid and subdural hemorrhage, was seen at [facility], found to be stable with no evidence of midline shift or cerebral edema and therefore was monitored for several days and sent to the [facility] for continued monitoring. While here, the patient has slowly but surely improved. He has had good control of his blood pressures, had no further arrhythmia. He has had no further bleeding, but has been seen in followup by his neurosurgeon and found to have a slight increase in bleeding, felt to be due to previous dose of aspirin. At this time, he has a one person assist and is eating mechanical soft diet, and PT feels that he is safe to be discharged home to care of his and family and to follow up with outpatient therapy. At this time, he is on allopurinol 100 mg daily, amiodarone 200 daily, amlodipine 2.5 mg nightly, atorvastatin 10 nightly, carvedilol 25 twice daily, escitalopram 10 mg daily, famotidine 20 mg nightly, finasteride 5 mg nightly, lisinopril 20 mg daily, MiraLAX 17 g daily, KCl 20 mEq daily, Risperdal 0.25 mg at night, and tamsulosin 0.4 mg at night. On discharge, his laboratory showed a sodium 140, potassium 3.6, chloride 105, bicarb 27, BUN was 21, creatinine 1.17, glucose 111, and albumin 3.1. Hematology showed white count 8700, hematocrit 29, and hemoglobin 9. Vital signs showed a blood pressure of 135/66, pulse 68, and O2 sats 95% on room air. He was alert, somewhat confused at night, still required monitoring because of wandering and did require Risperdal, but is oriented x3 and able to follow directions and his and family feel he is safe to be discharged home. He will be followed by home health with PT and will be seen by myself and transition of care in the next 1 to 2 weeks. Job ID: [id number]
== END 2018-11-07 13:20 | disposition home health service (06) | DRG 949 ==
LOC: NAV ACUTE 21:16
PROVIDERS: ADMIT Internal Medicine; ATTEND Internal Medicine
DX: S06.6X0D Traumatic subarachnoid hemorrhage without loss of consciousness, subsequent encounter (principal); G81.94 Hemiplegia, unspecified affecting left nondominant side; S06.5X0D Traumatic subdural hemorrhage without loss of consciousness, subsequent encounter; I10 Essential (primary) hypertension; I48.0 Paroxysmal atrial fibrillation; N40.0 Benign prostatic hyperplasia without lower urinary tract symptoms; F41.9 Anxiety disorder, unspecified; K21.9 Gastro-esophageal reflux disease without esophagitis; H35.30 Unspecified macular degeneration; R13.10 Dysphagia, unspecified; R53.81 Other malaise; Z87.01 Personal history of pneumonia (recurrent); Z86.79 Personal history of other diseases of the circulatory system; Z98.890 Other specified postprocedural states; Z87.891 Personal history of nicotine dependence; Z86.73 Personal history of transient ischemic attack (TIA), and cerebral infarction without residual deficits; W19.XXXD Unspecified fall, subsequent encounter
CPT/HCPCS: 36415; 80053; 85025; J0696; J7050

== ENCOUNTER 2019-01-17 16:51 | Inpatient (IN) | payer MEDICARE, OTHER ==
[2019-01-17 18:19] VITALS: BMI 22.6
[2019-01-17] MEDS: Acetaminophen 500 MG TAB PER TUBE SCH ×2 (18:39→22:06)
[2019-01-17] MEDS: traMADol HCl 50 MG TAB PER TUBE PRN (19:01)
[2019-01-17] MEDS: Polyethylene Glycol 3350 17 GM Packet PER TUBE PRN (19:02)
[2019-01-17] MEDS: Carvedilol 25 MG TAB PER TUBE SCH (20:34)
[2019-01-17] MEDS: Aspirin 81 mg Enteric Coated Tablet PER TUBE SCH (20:34)
[2019-01-17] MEDS: Melatonin 3 MG TAB PER TUBE PRN (20:34)
[2019-01-17] MEDS: Ibuprofen 200 MG TAB PO SCH (20:34)
[2019-01-17] MEDS: Ascorbic Acid 500 mg Chewable Tablet PER TUBE SCH (20:34)
[2019-01-17] MEDS: Amlodipine 5 MG TAB PER TUBE SCH (20:35)
[2019-01-17] MEDS: Famotidine 20 MG TAB PER TUBE SCH (20:35)
[2019-01-17] MEDS: Tamsulosin HCl 0.4 MG CAP PO SCH (20:35)
[2019-01-17] MEDS: Senokot S 8.6-50 MG TAB PER TUBE SCH (20:35)
[2019-01-17] MEDS: risperiDONE 0.25 MG TAB PER TUBE SCH (20:36)
[2019-01-17] MEDS: Brimonidine Tartrate 0.2% Ophth Soln 5 ml Bottle EA EYE SCH (20:37)
[2019-01-17] MEDS: Dorzolamide HCl 2% Ophth Soln 10 ml Bottle EA EYE SCH (20:37)
[2019-01-17] MEDS: Finasteride 5 MG TAB PO SCH (20:37)
[2019-01-17] MEDS: NITROFURANTOIN MONOHYD PO SCH (20:38)
[2019-01-17] MEDS: M CRYST PO SCH (20:38)
--- NOTE | 2019-01-17 22:46 | HP ---
HISTORY OF PRESENT ILLNESS: The patient is a very pleasant 88-year-old white male, well known to myself, who has had a complicated history over the last year with a stroke following a left carotid arteriogram superimposed on a long history of hypertension, atrial fibrillation with problem with intermittent aspiration. He has also had frequent UTIs secondary to BPH but had been stabilized and improved after inpatient and rehab hospitalization and was living at home within the care of his when apparently after rising from the commode, he could not bear his weight and therefore went to the floor, suffered pain. Subsequent x-rays in the emergency room showed him to have a subcapital fracture of the right femur. He was admitted to [facility] where he underwent right hemiarthroplasty. He did well with no problems with his atrial fibrillation or hypertension. On discharge, his blood pressure is 157/79, O2 saturation was 93% on room air. He was doing well and therefore was walking somewhat in the [place], but required more therapy, was transferred to the skilled unit. He did have some problem more so with confusion today and does have a urinary tract infection, which is being treated at this time for the E. coli infection with Macrodantin at a dose of 100 mg twice daily. PAST MEDICAL HISTORY: Prior to this was positive also for long history of hypertension, macular degeneration, gastroesophageal reflux, congestive heart failure, atrial fibrillation. PAST SURGICAL HISTORY: Positive for left knee replacement, left carotid endarterectomy, bilateral cataracts and a PEG tube. MEDICATIONS: Include at this time: 1. Amiodarone 200 mg per tube daily. 2. Amlodipine 2.5 mg per tube daily. 3. Aspirin 81 per tube twice daily. 4. Atorvastatin 10 mg per tube nightly. 5. Carvedilol 25 mg per tube twice daily. 6. Escitalopram 10 mg per tube daily. 7. Finasteride 5 mg daily. 8. Melatonin 3 mg daily. 9. Nitrofurantoin 100 mg twice daily. 10. KCl 20 mEq daily. 11. Risperidone 0.25 mg nightly. 12. Tramadol 50 mg per tube every 6 hours as needed. ALLERGIES: HE HAS NO KNOWN ALLERGIES. SOCIAL HISTORY: He lives with his of many years. REVIEW OF SYSTEMS: HEENT: Denies any headaches, dizziness. He does have chronic decreased hearing and decreased vision. PULMONARY: Denies cough, sputum production, pneumonia, asthma, tuberculosis. CARDIOVASCULAR: Denies chest pain, orthopnea, paroxysmal nocturnal dyspnea, or edema. GASTROINTESTINAL: Denies nausea, vomiting, diarrhea, constipation, or abdominal pain except for occasional abdominal pain after fatty food felt to be due to occult gallstones. GENITOURINARY: Denies dysuria, hematuria, nocturia, but does have frequency and now has urinary tract infection. MUSCULOSKELETAL: Has some pain in his back and in his right hip site of the surgery. NEUROLOGIC: Has right hemiparesis. PHYSICAL EXAMINATION: GENERAL: The patient is an elderly white male, sitting up in bed, eating his pureed diet with his . He is oriented x3 and cooperative. VITAL SIGNS: Show him to have a blood pressure of 169/74, temperature 97.9, pulse 57, respirations 18, O2 sats 93% on room air. HEENT: Pupils are equal, round, and reactive to light and accommodation. Sclerae anicteric. Conjunctivae pale. Oral mucous membranes well hydrated. NECK: Supple. There are no nodes or masses. JVP is not elevated. Carotids 2+ and equal without bruit. There is a left carotid endarterectomy scar. LUNGS: Clear. CARDIAC: Showed a regular rhythm. No gallops or murmurs. ABDOMEN: Soft, nontender, with no masses or organomegaly. SKIN/EXTREMITIES: Display no edema, clubbing, or cyanosis. There is a healing right lateral hip incision. NEUROLOGICAL: Shows right hemiparesis. LABORATORY DATA: Pending previously from previous hospital showed him to have a sodium 134, potassium 4.1, chloride 101, bicarb 27, BUN 38, creatinine 1.21, glucose 133, white count 8900, hematocrit 34, hemoglobin 11. ASSESSMENT: 1. Resolving right hip fracture, status post right total hip replacement. 2. Stable cerebrovascular accident with a right hemiparesis, improving with therapy. 3. Stable atrial fibrillation, may be converted on amiodarone. We will obtain EKG in the morning. 4. Hypertension controlled to goal. 5. Recurrent aspiration risks with PEG tube feedings and comfort feedings per family with pureed diet. PLAN: Consult PT, OT. Obtain CBC, comp met, EKG. Continue prehospitalization medications. Monitor for aspiration and falls. Job ID: [id number]
[2019-01-18] MEDS: Acetaminophen 500 MG TAB PER TUBE SCH ×3 (04:43→18:51)
[2019-01-18] MEDS: Ibuprofen 200 MG TAB PO SCH ×3 (04:43→20:24)
[2019-01-18 05:47] LABS: #Basophils 0.1 thou/uL (0.0-0.2); #Eosinphils 0.4 thou/uL (0.0-0.7); #Lymphocytes 1.6 thou/uL (1.20-3.40); #Monocytes 0.8 thou/uL (0.11-0.59); #Neutrophils 4.1 thou/uL (1.40-6.50); %Basophils 0.9 % (0.0-1.0); %Eosinophils 5.1 % (0.0-10.0); %Lymphocytes 23.5 % (21.0-51.0); %Monocytes 11.2 % (0.0-10.0); %Neutrophils 59.3 % (42.0-75.0); Hemoglobin 9.1 g/dL (14.0-18.0); Mean Corpuscular Hemoglobin 26.7 pg (27.0-31.0); Mean Corpuscular Volume 86.2 fL (78.0-98.0); Mean Platelet Volume 6.9 fL (7.4-10.4); Platelet Count 139 thou/uL (130-400); RBC Distribution Width 15.6 % (11.5-14.5); Red Blood Cell (RBC) Count 3.42 mill/uL (4.70-6.10)
[2019-01-18 06:02] LABS: ALT (SGPT) 21 U/L (8-55); AST (SGOT) 27 U/L (5-34); Albumin 3.1 g/dL (3.4-4.8); Alkaline Phosphatase 72 U/L (40-150); Anion Gap 13 mmol/L (10-20); BUN (Urea Nitrogen) 27 mg/dL (8.4-25.7); Bilirubin, Total 0.6 mg/dL (0.2-1.2); Calc. Creatinine Clearance 61 mL/min (70-130); Carbon Dioxide 26 mmol/L (23-31); Chloride 103 mmol/L (98-107); Estimated GFR-MDRD 79; Glucose 94 mg/dL (83-110); Potassium 3.2 mmol/L (3.5-5.1); Protein, Total 6.1 g/dL (5.8-8.1); Sodium 139 mmol/L (136-145)
[2019-01-18] MEDS: NITROFURANTOIN MONOHYD PO SCH ×2 (08:44→20:26)
[2019-01-18] MEDS: M CRYST PO SCH ×2 (08:44→20:26)
[2019-01-18] MEDS: Folic Acid 1 MG TAB PER TUBE SCH (08:44)
[2019-01-18] MEDS: Senokot S 8.6-50 MG TAB PER TUBE SCH ×2 (08:44→20:25)
[2019-01-18] MEDS: Ascorbic Acid 500 mg Chewable Tablet PER TUBE SCH ×2 (08:45→20:24)
[2019-01-18] MEDS: Escitalopram Oxalate 10 mg Tablet PER TUBE SCH (08:45)
[2019-01-18] MEDS: Aspirin 81 mg Enteric Coated Tablet PER TUBE SCH ×2 (08:45→20:22)
[2019-01-18] MEDS: Dorzolamide HCl 2% Ophth Soln 10 ml Bottle EA EYE SCH ×3 (08:45→20:27)
[2019-01-18] MEDS: Carvedilol 25 MG TAB PER TUBE SCH ×2 (08:45→20:23)
[2019-01-18] MEDS: Multivitamin W/ Minerals 1 TAB PER TUBE SCH (08:45)
[2019-01-18] MEDS: Brimonidine Tartrate 0.2% Ophth Soln 5 ml Bottle EA EYE SCH ×3 (08:45→20:26)
[2019-01-18] MEDS: Amiodarone 200 MG TAB PER TUBE SCH (08:45)
[2019-01-18] MEDS: traMADol HCl 50 MG TAB PER TUBE PRN (08:46)
[2019-01-18 17:17] LABS: Bilirubin Negative (Negative); Blood, Urine Trace (Negative); Clarity Clear (Clear); Glucose, Urine (Dipstick) Negative (Negative); Leukocyte Negative (Negative); Nitrite Negative (Negative); Protein, Urine (Dipstick) 30 mg/dL (Neg-Trace); Specific Gravity, Urine 1.015 (1.005-1.030); pH, Urine 7.5 (5.0-9.0)
[2019-01-18 17:18] LABS: Bacteria/HPF None Seen HPF (None Seen); RBC/HPF 0-3 HPF (0-3); Squamous Epithelial None Seen HPF (0-3); WBC/HPF None Seen HPF (0-3)
[2019-01-18] MEDS: Amlodipine 5 MG TAB PER TUBE SCH (20:23)
[2019-01-18] MEDS: Atorvastatin Calcium 10 MG TAB PER TUBE SCH (20:24)
[2019-01-18] MEDS: Melatonin 3 MG TAB PER TUBE PRN (20:24)
[2019-01-18] MEDS: Famotidine 20 MG TAB PER TUBE SCH (20:24)
[2019-01-18] MEDS: risperiDONE 0.25 MG TAB PER TUBE SCH (20:24)
[2019-01-18] MEDS: Tamsulosin HCl 0.4 MG CAP PO SCH (20:25)
[2019-01-18] MEDS: Finasteride 5 MG TAB PO SCH (20:26)
[2019-01-19] MEDS: Acetaminophen 500 MG TAB PER TUBE SCH ×6 (01:27→20:24)
[2019-01-19] MEDS: Ibuprofen 200 MG TAB PO SCH ×4 (05:27→20:32)
[2019-01-19] MEDS: Ascorbic Acid 500 mg Chewable Tablet PER TUBE SCH ×2 (08:27→20:23)
[2019-01-19] MEDS: Carvedilol 25 MG TAB PER TUBE SCH ×2 (08:27→20:25)
[2019-01-19] MEDS: Aspirin 81 mg Enteric Coated Tablet PER TUBE SCH ×2 (08:27→20:24)
[2019-01-19] MEDS: Amiodarone 200 MG TAB PER TUBE SCH (08:27)
[2019-01-19] MEDS: Brimonidine Tartrate 0.2% Ophth Soln 5 ml Bottle EA EYE SCH ×3 (08:27→20:25)
[2019-01-19] MEDS: Dorzolamide HCl 2% Ophth Soln 10 ml Bottle EA EYE SCH ×3 (08:28→20:25)
[2019-01-19] MEDS: Escitalopram Oxalate 10 mg Tablet PER TUBE SCH (08:28)
[2019-01-19] MEDS: Multivitamin W/ Minerals 1 TAB PER TUBE SCH (08:28)
[2019-01-19] MEDS: Folic Acid 1 MG TAB PER TUBE SCH (08:28)
[2019-01-19] MEDS: NITROFURANTOIN MONOHYD PO SCH ×3 (08:29→23:00)
[2019-01-19] MEDS: Senokot S 8.6-50 MG TAB PER TUBE SCH ×2 (08:29→20:23)
[2019-01-19] MEDS: M CRYST PO SCH ×3 (08:29→23:00)
[2019-01-19] MEDS: Polyethylene Glycol 3350 17 GM Packet PER TUBE PRN (14:36)
--- NOTE | 2019-01-19 17:51 | PRG ---
DATE OF SERVICE: 01/18/2019 SUBJECTIVE: The patient feels well today with no complaints, but did become agitated last night and required family to come up and calm him down and despite taking his Risperdal 0.25 at night, he has done well today, however, with no further problems. He is resting and his therapy is not available today. OBJECTIVE: VITAL SIGNS: Showed temperature is 97, pulse 66, respirations 18, O2 sats 95% on room air, blood pressure is 158/77. LUNGS: Clear. CARDIAC: Showed regular rhythm. ABDOMEN: Soft and nontender. MUSCULOSKELETAL: Healing right lateral hip incision and stable right hemiparesis. LABORATORY DATA: Sodium is 139, potassium 3.2, chloride 103, bicarb 26, BUN 27, creatinine 0.91, albumin 3.1, AST 27, ALT 21. White count 7000, hematocrit 29, hemoglobin 9. ASSESSMENT: 1. Stable cerebrovascular accident with right hemiparesis with an occasional agitation, on Risperdal, may need to increase dose. 2. Resolving hip fracture. 3. Stable atrial fibrillation with treatment with EKG pending. 4. Right hip fracture, healing well, status post right total hip replacement. PLAN: Continue to monitor for agitation. Continue prehospitalization med. Hold PT today, but start again tomorrow. Continue pain medications as needed. Continue to monitor vital signs closely. Start potassium 20 mEq daily and repeat basic metabolic profile in the a.m. Job ID: [id number]
[2019-01-19] MEDS: Atorvastatin Calcium 10 MG TAB PER TUBE SCH (20:22)
[2019-01-19] MEDS: Tamsulosin HCl 0.4 MG CAP PO SCH (20:23)
[2019-01-19] MEDS: risperiDONE 0.25 MG TAB PER TUBE SCH (20:23)
[2019-01-19] MEDS: Famotidine 20 MG TAB PER TUBE SCH (20:23)
[2019-01-19] MEDS: Amlodipine 5 MG TAB PER TUBE SCH (20:23)
[2019-01-19] MEDS: Melatonin 3 MG TAB PER TUBE PRN (20:24)
[2019-01-19] MEDS: Finasteride 5 MG TAB PO SCH (20:25)
[2019-01-19] MEDS ORDERED: Nitrofurantoin Macrocrystal 50 MG CAP ONE (20:34)
[2019-01-20] MEDS: traMADol HCl 50 MG TAB PER TUBE PRN (01:34)
[2019-01-20] MEDS: Acetaminophen 500 MG TAB PER TUBE SCH ×5 (05:19→23:33)
[2019-01-20] MEDS: Ibuprofen 200 MG TAB PO SCH ×4 (05:20→20:10)
--- NOTE | 2019-01-20 06:01 | PRG ---
DATE OF SERVICE: 01/18/2019 SUBJECTIVE: The patient is sitting up in the bed, eating supper with his feeding him, in no distress. He has cooperated with therapy today. Has had no further agitation, only on his routine risperidone. OBJECTIVE: VITAL SIGNS: His temperature is 97.2, pulse 61, respirations 20, O2 saturations 95% on room air, blood pressure 152/69. LUNGS: Clear. CARDIAC: Shows a regular rhythm. ABDOMEN: Soft and nontender. SKIN/EXTREMITIES: Show healing right lateral hip incision. No edema. NEUROLOGIC: Shows stable right hemiparesis. ASSESSMENT: 1. Resolving right hip fracture, status post right total hip replacement. 2. Stable right hemiparesis secondary to distant cerebrovascular accident. 3. Mild agitation, controlled with risperidone. 4. Paroxysmal atrial fibrillation with EKG pending. PLAN: Repeat EKG in the a.m. Continue PT, OT. Continue potassium supplementation and check basic metabolic profile in several days. Job ID: [id number]
[2019-01-20 06:47] LABS: Anion Gap 14 mmol/L (10-20); BUN (Urea Nitrogen) 26 mg/dL (8.4-25.7); Calc. Creatinine Clearance 57 mL/min (70-130); Calcium 8.9 mg/dL (7.8-10.44); Carbon Dioxide 24 mmol/L (23-31); Chloride 104 mmol/L (98-107); Estimated GFR-MDRD 74; Glucose 120 mg/dL (83-110); Potassium 3.1 mmol/L (3.5-5.1); Sodium 139 mmol/L (136-145)
[2019-01-20] MEDS: Aspirin 81 mg Enteric Coated Tablet PER TUBE SCH ×2 (08:33→20:07)
[2019-01-20] MEDS: Amiodarone 200 MG TAB PER TUBE SCH (08:33)
[2019-01-20] MEDS: Brimonidine Tartrate 0.2% Ophth Soln 5 ml Bottle EA EYE SCH ×3 (08:33→20:09)
[2019-01-20] MEDS: Carvedilol 25 MG TAB PER TUBE SCH ×2 (08:33→20:07)
[2019-01-20] MEDS: Ascorbic Acid 500 mg Chewable Tablet PER TUBE SCH ×2 (08:33→20:09)
[2019-01-20] MEDS: Folic Acid 1 MG TAB PER TUBE SCH (08:34)
[2019-01-20] MEDS: Senokot S 8.6-50 MG TAB PER TUBE SCH ×2 (08:34→20:07)
[2019-01-20] MEDS: Multivitamin W/ Minerals 1 TAB PER TUBE SCH (08:34)
[2019-01-20] MEDS: Dorzolamide HCl 2% Ophth Soln 10 ml Bottle EA EYE SCH ×3 (08:34→20:09)
[2019-01-20] MEDS: Escitalopram Oxalate 10 mg Tablet PER TUBE SCH (08:34)
[2019-01-20] MEDS: Polyethylene Glycol 3350 17 GM Packet PER TUBE PRN (08:35)
[2019-01-20] MEDS ORDERED: Magnesium Citrate 300 ML BOT PO SCH (18:15)
--- NOTE | 2019-01-20 18:40 | CT ---
CT brain. HISTORY: Headaches. Noncontrast enhanced CT images of the brain obtained. Comparison made to previous exam from 12/03/2018. The CT images brain demonstrate diffuse cortical atrophy and deep white matter ischemic changes. Old area of right parietal strokes seen. Previously noted small left parietal subdural hematoma has resolved. There is increasing left maxillary sinus opacification. IMPRESSION: Cortical atrophy and deep white matter ischemic changes.
[2019-01-20] MEDS: Melatonin 3 MG TAB PER TUBE PRN (20:07)
[2019-01-20] MEDS: Amlodipine 5 MG TAB PER TUBE SCH (20:08)
[2019-01-20] MEDS: risperiDONE 0.25 MG TAB PER TUBE SCH (20:08)
[2019-01-20] MEDS: Tamsulosin HCl 0.4 MG CAP PO SCH (20:08)
[2019-01-20] MEDS: Finasteride 5 MG TAB PO SCH (20:09)
[2019-01-20] MEDS: Famotidine 20 MG TAB PER TUBE SCH (20:09)
[2019-01-20] MEDS: Atorvastatin Calcium 10 MG TAB PER TUBE SCH (20:09)
[2019-01-21] MEDS: Acetaminophen 500 MG TAB PER TUBE SCH ×4 (00:45→18:04)
[2019-01-21] MEDS: traMADol HCl 50 MG TAB PER TUBE PRN ×3 (00:45→21:01)
[2019-01-21] MEDS: Ibuprofen 200 MG TAB PO SCH ×3 (04:36→21:01)
[2019-01-21] MEDS: Senokot S 8.6-50 MG TAB PER TUBE SCH ×2 (09:11→21:00)
[2019-01-21] MEDS: Ascorbic Acid 500 mg Chewable Tablet PER TUBE SCH ×2 (09:12→20:58)
[2019-01-21] MEDS: Escitalopram Oxalate 10 mg Tablet PER TUBE SCH (09:12)
[2019-01-21] MEDS: Multivitamin W/ Minerals 1 TAB PER TUBE SCH (09:12)
[2019-01-21] MEDS: Carvedilol 25 MG TAB PER TUBE SCH ×2 (09:13→20:59)
[2019-01-21] MEDS: Folic Acid 1 MG TAB PER TUBE SCH (09:14)
[2019-01-21] MEDS: Dorzolamide HCl 2% Ophth Soln 10 ml Bottle EA EYE SCH ×3 (09:14→20:59)
[2019-01-21] MEDS: Brimonidine Tartrate 0.2% Ophth Soln 5 ml Bottle EA EYE SCH ×3 (09:14→20:59)
[2019-01-21] MEDS: Aspirin 81 mg Enteric Coated Tablet PER TUBE SCH ×2 (09:14→20:58)
[2019-01-21] MEDS: Amiodarone 200 MG TAB PER TUBE SCH (09:14)
[2019-01-21] MEDS: Amlodipine 5 MG TAB PER TUBE SCH (20:58)
[2019-01-21] MEDS: Atorvastatin Calcium 10 MG TAB PER TUBE SCH (20:58)
[2019-01-21] MEDS: Tamsulosin HCl 0.4 MG CAP PO SCH (21:00)
[2019-01-21] MEDS: risperiDONE 0.25 MG TAB PER TUBE SCH (21:00)
[2019-01-21] MEDS: Famotidine 20 MG TAB PER TUBE SCH (21:00)
[2019-01-21] MEDS: Finasteride 5 MG TAB PO SCH (21:00)
[2019-01-21] MEDS: Melatonin 3 MG TAB PER TUBE PRN (21:01)
[2019-01-22] MEDS: Acetaminophen 500 MG TAB PER TUBE SCH ×5 (04:11→23:22)
[2019-01-22] MEDS: Ibuprofen 200 MG TAB PO SCH ×3 (05:08→23:21)
[2019-01-22] MEDS: traMADol HCl 50 MG TAB PER TUBE PRN ×2 (05:08→19:09)
[2019-01-22] MEDS: Carvedilol 25 MG TAB PER TUBE SCH ×2 (09:04→19:08)
[2019-01-22] MEDS: Aspirin 81 mg Enteric Coated Tablet PER TUBE SCH ×2 (09:04→19:07)
[2019-01-22] MEDS: Ascorbic Acid 500 mg Chewable Tablet PER TUBE SCH ×2 (09:04→19:07)
[2019-01-22] MEDS: Senokot S 8.6-50 MG TAB PER TUBE SCH ×2 (09:04→19:09)
[2019-01-22] MEDS: Multivitamin W/ Minerals 1 TAB PER TUBE SCH (09:05)
[2019-01-22] MEDS: Folic Acid 1 MG TAB PER TUBE SCH (09:05)
[2019-01-22] MEDS: Amiodarone 200 MG TAB PER TUBE SCH (09:05)
[2019-01-22] MEDS: Escitalopram Oxalate 10 mg Tablet PER TUBE SCH (09:06)
[2019-01-22] MEDS: Brimonidine Tartrate 0.2% Ophth Soln 5 ml Bottle EA EYE SCH ×3 (09:07→19:08)
[2019-01-22] MEDS: Dorzolamide HCl 2% Ophth Soln 10 ml Bottle EA EYE SCH ×3 (09:07→19:08)
--- NOTE | 2019-01-22 17:41 | PRG ---
DATE OF SERVICE: 01/21/2019 SUBJECTIVE: The patient feels well except being tired and sleepy all day, had no problems with dizziness or chest pain. No vomiting or nausea. OBJECTIVE: VITAL SIGNS: Show temperature is 97, pulse 58, respirations 20, O2 saturations 94% on room air, blood pressure 145/67. LUNGS: Clear. CARDIAC: Showed regular rhythm. ABDOMEN: Soft and nontender. SKIN/EXTREMITIES: Display healing right lateral hip incision. ASSESSMENT: 1. Stable subdural. 2. Resolving right hip replacement. 3. Stable right hemiparesis status post distal cerebrovascular accident. Tolerating tube feeding. 4. Resolved agitation. 5. Paroxysmal atrial fibrillation. No evidence for recurrence. On amiodarone. PLAN: Continue PT/OT. Monitor vital signs with therapy. Continue to monitor for aspiration. Job ID: [id number]
--- NOTE | 2019-01-22 17:44 | PRG ---
DATE OF SERVICE: 01/20/2019 SUBJECTIVE: The patient feels well. No complaints. Cooperating with therapy, eating well. OBJECTIVE: VITAL SIGNS: Blood pressure of 138/77, temperature is 97, pulse 59, respirations 20, and O2 saturations 96% on room air. LUNGS: Clear. CARDIAC: Showed regular rhythm. ABDOMEN: Soft and nontender. PEG tube is functioning well. ASSESSMENT: 1. Resolving right hip fracture. 2. Labile hypertension with blood pressure low in the morning, elevated in the afternoon. 3. Stable subdural hematoma with no evidence of increased bleeding. 4. Paroxysmal atrial fibrillation, well controlled. PLAN: Continue PT, OT. Monitor blood pressure. May need to decrease medication. Continue potassium supplementation. Check basic metabolic profile in the a.m. Monitor for aspiration. Job ID: [id number]
--- NOTE | 2019-01-22 17:49 | PRG ---
DATE OF SERVICE: 01/22/2019 SUBJECTIVE: The patient feels well, lying in bed, was very weak and tired today and could not do therapy secondary to bradycardia and hypotension. No syncope, chest pain, or shortness of breath. OBJECTIVE: VITAL SIGNS: Today show pulse of 50, blood pressure was 79/46, O2 saturations 93% on room air. LUNGS: Clear. CARDIAC: Showed regular rhythm. ABDOMEN: Soft and nontender. SKIN/EXTREMITIES: Displayed no edema, clubbing, or cyanosis. Healing lateral hip incision. ASSESSMENT: 1. Recurrent hypotension and bradycardia, possibly due to excessive medication. 2. Healing right hip replacement. 3. Stable subdural. PLAN: Obtain CBC, comprehensive metabolic panel, EKG now, discontinue amlodipine and decrease amiodarone to 100 mg daily. Job ID: [id number]
[2019-01-22 17:52] LABS: #Basophils 0.1 thou/uL (0.0-0.2); #Eosinphils 0.5 thou/uL (0.0-0.7); #Lymphocytes 1.6 thou/uL (1.20-3.40); #Monocytes 1.1 thou/uL (0.11-0.59); #Neutrophils 6.3 thou/uL (1.40-6.50); %Basophils 0.7 % (0.0-1.0); %Eosinophils 5.7 % (0.0-10.0); %Monocytes 11.1 % (0.0-10.0); %Neutrophils 65.5 % (42.0-75.0); Hemoglobin 9.4 g/dL (14.0-18.0); Mean Corpuscular HGB CONC 31.1 g/dL (32.0-36.0); Mean Corpuscular Hemoglobin 26.8 pg (27.0-31.0); Mean Corpuscular Volume 86.2 fL (78.0-98.0); Mean Platelet Volume 6.6 fL (7.4-10.4); Platelet Count 172 thou/uL (130-400); RBC Distribution Width 16.4 % (11.5-14.5); Red Blood Cell (RBC) Count 3.52 mill/uL (4.70-6.10); White Blood Cell (WBC) Count 9.6 thou/uL (4.8-10.8)
[2019-01-22 18:07] LABS: ALT (SGPT) 22 U/L (8-55); AST (SGOT) 21 U/L (5-34); Albumin 3.3 g/dL (3.4-4.8); Alkaline Phosphatase 95 U/L (40-150); Anion Gap 14 mmol/L (10-20); BUN (Urea Nitrogen) 53 mg/dL (8.4-25.7); Bilirubin, Total 0.4 mg/dL (0.2-1.2); Calc. Creatinine Clearance 25 mL/min (70-130); Calcium 8.8 mg/dL (7.8-10.44); Carbon Dioxide 23 mmol/L (23-31); Chloride 101 mmol/L (98-107); Estimated GFR-MDRD 29; Globulin 3.1 g/dL (2.4-3.5); Glucose 102 mg/dL (83-110); Protein, Total 6.4 g/dL (5.8-8.1); Sodium 134 mmol/L (136-145)
[2019-01-22] MEDS: Atorvastatin Calcium 10 MG TAB PER TUBE SCH (19:08)
[2019-01-22] MEDS: Finasteride 5 MG TAB PO SCH (19:08)
[2019-01-22] MEDS: Famotidine 20 MG TAB PER TUBE SCH (19:08)
[2019-01-22] MEDS: risperiDONE 0.25 MG TAB PER TUBE SCH (19:09)
[2019-01-22] MEDS: Tamsulosin HCl 0.4 MG CAP PO SCH (19:09)
[2019-01-22] MEDS: Melatonin 3 MG TAB PER TUBE PRN (23:22)
[2019-01-23] MEDS: Acetaminophen 500 MG TAB PER TUBE SCH ×4 (05:47→23:45)
[2019-01-23] MEDS: Ibuprofen 200 MG TAB PO SCH ×3 (05:48→22:39)
[2019-01-23] MEDS: Brimonidine Tartrate 0.2% Ophth Soln 5 ml Bottle EA EYE SCH ×3 (08:12→21:18)
[2019-01-23] MEDS: Dorzolamide HCl 2% Ophth Soln 10 ml Bottle EA EYE SCH ×3 (08:12→21:17)
[2019-01-23] MEDS: Folic Acid 1 MG TAB PER TUBE SCH (08:13)
[2019-01-23] MEDS: Amiodarone 200 MG TAB PER TUBE SCH (08:13)
[2019-01-23] MEDS: Senokot S 8.6-50 MG TAB PER TUBE SCH ×2 (08:13→21:13)
[2019-01-23] MEDS: Carvedilol 25 MG TAB PER TUBE SCH ×2 (08:13→21:17)
[2019-01-23] MEDS: Multivitamin W/ Minerals 1 TAB PER TUBE SCH (08:14)
[2019-01-23] MEDS: Aspirin 81 mg Enteric Coated Tablet PER TUBE SCH ×2 (08:14→21:14)
[2019-01-23] MEDS: Escitalopram Oxalate 10 mg Tablet PER TUBE SCH (08:14)
[2019-01-23] MEDS: Ascorbic Acid 500 mg Chewable Tablet PER TUBE SCH ×2 (08:14→21:13)
[2019-01-23] MEDS: traMADol HCl 50 MG TAB PER TUBE PRN ×2 (12:00→17:19)
[2019-01-23] MEDS: Tamsulosin HCl 0.4 MG CAP PO SCH (21:13)
[2019-01-23] MEDS: Famotidine 20 MG TAB PER TUBE SCH (21:14)
[2019-01-23] MEDS: risperiDONE 0.25 MG TAB PER TUBE SCH (21:14)
[2019-01-23] MEDS: Atorvastatin Calcium 10 MG TAB PER TUBE SCH (21:14)
[2019-01-23] MEDS: Finasteride 5 MG TAB PO SCH (21:15)
[2019-01-23] MEDS: Melatonin 3 MG TAB PER TUBE PRN (22:39)
[2019-01-24] MEDS: Ibuprofen 200 MG TAB PO SCH ×3 (05:22→22:24)
[2019-01-24] MEDS: Acetaminophen 500 MG TAB PER TUBE SCH ×5 (05:23→22:25)
[2019-01-24 05:43] LABS: Anion Gap 13 mmol/L (10-20); BUN (Urea Nitrogen) 38 mg/dL (8.4-25.7); Calc. Creatinine Clearance 38 mL/min (70-130); Calcium 9.1 mg/dL (7.8-10.44); Carbon Dioxide 25 mmol/L (23-31); Chloride 103 mmol/L (98-107); Estimated GFR-MDRD 45; Glucose 97 mg/dL (83-110); Potassium 3.4 mmol/L (3.5-5.1); Sodium 138 mmol/L (136-145)
[2019-01-24] MEDS: Amiodarone 200 MG TAB PER TUBE SCH (08:22)
[2019-01-24] MEDS: Ascorbic Acid 500 mg Chewable Tablet PER TUBE SCH ×2 (08:22→20:45)
[2019-01-24] MEDS: Carvedilol 25 MG TAB PER TUBE SCH ×2 (08:23→20:47)
[2019-01-24] MEDS: Aspirin 81 mg Enteric Coated Tablet PER TUBE SCH ×2 (08:23→20:44)
[2019-01-24] MEDS: Brimonidine Tartrate 0.2% Ophth Soln 5 ml Bottle EA EYE SCH ×3 (08:23→20:46)
[2019-01-24] MEDS: Multivitamin W/ Minerals 1 TAB PER TUBE SCH (08:26)
[2019-01-24] MEDS: Escitalopram Oxalate 10 mg Tablet PER TUBE SCH (08:26)
[2019-01-24] MEDS: Dorzolamide HCl 2% Ophth Soln 10 ml Bottle EA EYE SCH ×3 (08:26→20:46)
[2019-01-24] MEDS: Senokot S 8.6-50 MG TAB PER TUBE SCH ×2 (08:26→20:49)
[2019-01-24] MEDS: Folic Acid 1 MG TAB PER TUBE SCH (08:26)
[2019-01-24] MEDS: Tamsulosin HCl 0.4 MG CAP PO SCH (20:44)
[2019-01-24] MEDS: Atorvastatin Calcium 10 MG TAB PER TUBE SCH (20:45)
[2019-01-24] MEDS: risperiDONE 0.25 MG TAB PER TUBE SCH (20:45)
[2019-01-24] MEDS: Famotidine 20 MG TAB PER TUBE SCH (20:45)
[2019-01-24] MEDS: traMADol HCl 50 MG TAB PER TUBE PRN (20:47)
[2019-01-24] MEDS: Finasteride 5 MG TAB PO SCH (20:49)
[2019-01-24] MEDS: Melatonin 3 MG TAB PER TUBE PRN (22:25)
[2019-01-25] MEDS: Ibuprofen 200 MG TAB PO SCH ×3 (06:17→21:39)
[2019-01-25] MEDS: Acetaminophen 500 MG TAB PER TUBE SCH ×4 (06:17→21:39)
[2019-01-25] MEDS: Ascorbic Acid 500 mg Chewable Tablet PER TUBE SCH ×2 (08:06→19:08)
[2019-01-25] MEDS: Aspirin 81 mg Enteric Coated Tablet PER TUBE SCH ×2 (08:06→19:09)
[2019-01-25] MEDS: Brimonidine Tartrate 0.2% Ophth Soln 5 ml Bottle EA EYE SCH ×3 (08:06→19:13)
[2019-01-25] MEDS: Senokot S 8.6-50 MG TAB PER TUBE SCH ×2 (08:07→19:10)
[2019-01-25] MEDS: Carvedilol 25 MG TAB PER TUBE SCH ×2 (08:07→19:13)
[2019-01-25] MEDS: Dorzolamide HCl 2% Ophth Soln 10 ml Bottle EA EYE SCH ×3 (08:07→19:10)
[2019-01-25] MEDS: Folic Acid 1 MG TAB PER TUBE SCH (08:07)
[2019-01-25] MEDS: Multivitamin W/ Minerals 1 TAB PER TUBE SCH (08:07)
[2019-01-25] MEDS: Escitalopram Oxalate 10 mg Tablet PER TUBE SCH (08:07)
--- NOTE | 2019-01-25 10:03 | PRG ---
DATE OF SERVICE: 01/24/2019 SUBJECTIVE: The patient lying in the bed, awaiting his nighttime medications. No distress, but did require to come back up last night prior to him going to sleep, but then slept through the night. He is still complaining mainly of fatigue today with no shortness of breath, chest pain, or leg pain. OBJECTIVE: VITAL SIGNS: Temperature is 97.7, pulse is still 57 on 100 mg amiodarone and 25 twice daily of carvedilol. LUNGS: Clear. CARDIAC: Showed regular rhythm. ABDOMEN: Soft and nontender. SKIN/EXTREMITIES: Healing of right lateral hip incision. ASSESSMENT: 1. Healing right hip fracture, status post hip replacement. 2. Persistent mild confusion, status post subdural requiring Seroquel at night, but with decreasing agitation. 3. Persistent bradycardia and fatigue on amiodarone, carvedilol, but with increasing systolic hypertension. PLAN: Discontinue amiodarone. Monitor blood pressure on carvedilol. May need to start low-dose amlodipine at night. Continue PT/OT. Job ID: [id number]
--- NOTE | 2019-01-25 10:21 | PRG ---
DATE OF SERVICE: 01/23/2019 SUBJECTIVE: The patient is lying in the bed, resting, visiting his , could not do much therapy today secondary to persistent fatigue, has no further hallucinations at night. Denies chest pain or shortness of breath. OBJECTIVE: VITAL SIGNS: Show blood pressure 168/88, temperature is 98, pulse 61, respirations 20, O2 saturations 94% on room air. LUNGS: Clear. CARDIAC: Shows slow regular rhythm. ABDOMEN: Soft and nontender. LABORATORY DATA: Recent laboratory showed hemoglobin stable at 9.4, hematocrit 30, white count 9600. Sodium 134, potassium 4.0, chloride 101, bicarb 23, BUN up to 53, creatinine 2.18, albumin 3.3, glucose 102. DIAGNOSTIC DATA: EKG only showed sinus bradycardia. ASSESSMENT: 1. Healing right hip replacement. 2. Stable subdural hematoma. 3. Recurrent bradycardia with increased blood pressure. Discontinued amlodipine. Decreased amiodarone to 100 daily. PLAN: Continue to monitor off amlodipine on decreased amiodarone dose. Continue PT and OT as needed. Continue to monitor for hallucinations at night on low-dose Seroquel. Job ID: [id number]
[2019-01-25] MEDS: Atorvastatin Calcium 10 MG TAB PER TUBE SCH (19:09)
[2019-01-25] MEDS: Finasteride 5 MG TAB PO SCH (19:10)
[2019-01-25] MEDS: risperiDONE 0.25 MG TAB PER TUBE SCH (19:10)
[2019-01-25] MEDS: Famotidine 20 MG TAB PER TUBE SCH (19:10)
[2019-01-25] MEDS: Tamsulosin HCl 0.4 MG CAP PO SCH (19:11)
[2019-01-25] MEDS: traMADol HCl 50 MG TAB PER TUBE PRN (19:11)
[2019-01-25] MEDS: Melatonin 3 MG TAB PER TUBE PRN (19:11)
[2019-01-25] MEDS ORDERED: Amlodipine 5 MG TAB PO SCH (21:00)
--- NOTE | 2019-01-25 21:44 | PRG ---
DATE OF SERVICE: 01/25/2019 SUBJECTIVE: The patient feels less fatigued today, but is more agitated tonight and is not sleeping despite taking his pain and anxiety medicine, in no distress, but only confused. OBJECTIVE: VITAL SIGNS: Show his temperature is 97.7, pulse 55, blood pressure 123/63, O2 sats 94% on room air. LUNGS: Clear. CARDIAC EXAMINATION: Showed regular rhythm. ABDOMEN: Soft and nontender. EXTREMITIES: Right hip is healing well. LABORATORY DATA: Laboratories yesterday show his creatinine was improving to 1.47, BUN of 38, potassium was down, however, to 3.4. ASSESSMENT: 1. Resolving right total hip status post right hip fracture. 2. Persistent confusion, status post subdural despite Seroquel at night. 3. Persistent bradycardia and fatigue despite discontinuation of amiodarone and only maintenance with carvedilol and low-dose amlodipine at night. PLAN: 1. Continue to monitor on low-dose carvedilol and if no improvement, may need to discontinue this and increase amlodipine. 2. Continue low-dose Seroquel and if no improvement, we may need to increase dose at night. 3. Continue PT/OT and discuss with therapy. Job ID: [id number]
[2019-01-26] MEDS: Ibuprofen 200 MG TAB PO SCH ×3 (05:58→19:53)
[2019-01-26] MEDS: Acetaminophen 500 MG TAB PER TUBE SCH ×3 (05:58→17:59)
[2019-01-26] MEDS: Escitalopram Oxalate 10 mg Tablet PER TUBE SCH (08:53)
[2019-01-26] MEDS: Folic Acid 1 MG TAB PER TUBE SCH (08:53)
[2019-01-26] MEDS: Aspirin 81 mg Enteric Coated Tablet PER TUBE SCH ×2 (08:53→19:52)
[2019-01-26] MEDS: Ascorbic Acid 500 mg Chewable Tablet PER TUBE SCH ×2 (08:53→19:51)
[2019-01-26] MEDS: Multivitamin W/ Minerals 1 TAB PER TUBE SCH (08:53)
[2019-01-26] MEDS: Senokot S 8.6-50 MG TAB PER TUBE SCH ×2 (08:53→19:53)
[2019-01-26] MEDS: Brimonidine Tartrate 0.2% Ophth Soln 5 ml Bottle EA EYE SCH ×2 (08:54→14:47)
[2019-01-26] MEDS: Carvedilol 25 MG TAB PER TUBE SCH (08:54)
[2019-01-26] MEDS: Dorzolamide HCl 2% Ophth Soln 10 ml Bottle EA EYE SCH ×3 (08:55→19:52)
[2019-01-26] MEDS: traMADol HCl 50 MG TAB PER TUBE PRN (12:20)
--- NOTE | 2019-01-26 19:33 | PRG ---
DATE OF SERVICE: 01/26/2019 SUBJECTIVE: The patient is lying in bed, resting, did cooperate with therapy, but did require his to come in last night in order to fall asleep. He is still having fatigue in the morning and is still having bradycardia and hypertension in the morning. He is not receiving his ibuprofen until after he has therapy or his Tylenol. OBJECTIVE: VITAL SIGNS: Show temperature is 98.1, pulse 55, respirations 18, O2 sat is 95% on room air, and blood pressure 153/66. LUNGS: Clear. CARDIAC: Shows irregular rhythm. ABDOMEN: Soft and nontender. NEUROLOGIC: Shows mild right hemiparesis SKIN/EXTREMITIES: Show healing right lateral hip incision. ASSESSMENT: 1. Resolving right hip fracture, only on Tylenol and ibuprofen, and we will give tramadol prior to therapy every morning at 7 and continue p.r.n. 2. Stable cerebrovascular accident with right hemiparesis, improving with therapy. 3. Confusion, agitation at night, requiring Seroquel and to place him to sleep. 4. Atrial fibrillation, converted to sinus rhythm, on amiodarone. 5. Hypertension, controlled to goal with significant bradycardia. 6. Recurrent aspiration on PEG tube feeding and comfort feeding. PLAN: 1. Decrease carvedilol to 12.5 mg twice daily. Increase amlodipine to 5 mg nightly. Monitor vital signs closely. 2. Change tramadol to 50 mg every morning at 7:30 and then p.r.n. 3. Continue comfort feedings and PEG feedings as needed and for medication. 4. Continue risperidone at night for sleep. 5. Continue finasteride and tamsulosin for BPH. Job ID: [id number]
[2019-01-26] MEDS: Finasteride 5 MG TAB PO SCH (19:52)
[2019-01-26] MEDS: Atorvastatin Calcium 10 MG TAB PER TUBE SCH (19:52)
[2019-01-26] MEDS: Famotidine 20 MG TAB PER TUBE SCH (19:52)
[2019-01-26] MEDS: risperiDONE 0.25 MG TAB PER TUBE SCH (19:53)
[2019-01-26] MEDS: Melatonin 3 MG TAB PER TUBE PRN (19:53)
[2019-01-26] MEDS: Tamsulosin HCl 0.4 MG CAP PO SCH (19:53)
[2019-01-26] MEDS: traMADol HCl 50 MG TAB PO PRN (19:54)
[2019-01-26] MEDS ORDERED: Amlodipine 5 MG TAB PO SCH (21:00)
[2019-01-27] MEDS: Brimonidine Tartrate 0.2% Ophth Soln 5 ml Bottle EA EYE SCH ×4 (01:00→19:56)
[2019-01-27] MEDS: Acetaminophen 500 MG TAB PER TUBE SCH ×4 (01:00→17:46)
[2019-01-27] MEDS: Carvedilol 25 MG TAB PER TUBE SCH ×3 (01:02→19:57)
[2019-01-27] MEDS: Ibuprofen 200 MG TAB PO SCH ×2 (06:24→14:07)
[2019-01-27] MEDS: traMADol HCl 50 MG TAB PER TUBE SCH (06:25)
[2019-01-27] MEDS ORDERED: traMADol HCl 50 MG TAB PER TUBE SCH (07:00)
[2019-01-27] MEDS: Ascorbic Acid 500 mg Chewable Tablet PER TUBE SCH ×2 (07:48→19:55)
[2019-01-27] MEDS: Escitalopram Oxalate 10 mg Tablet PER TUBE SCH (07:48)
[2019-01-27] MEDS: Multivitamin W/ Minerals 1 TAB PER TUBE SCH (07:48)
[2019-01-27] MEDS: Folic Acid 1 MG TAB PER TUBE SCH (07:48)
[2019-01-27] MEDS: Aspirin 81 mg Enteric Coated Tablet PER TUBE SCH ×2 (07:52→19:55)
[2019-01-27] MEDS: Dorzolamide HCl 2% Ophth Soln 10 ml Bottle EA EYE SCH ×3 (07:52→19:55)
[2019-01-27] MEDS: Senokot S 8.6-50 MG TAB PER TUBE SCH ×2 (07:53→19:56)
--- NOTE | 2019-01-27 19:43 | PRG ---
DATE OF SERVICE: 01/27/2019 SUBJECTIVE: The patient is very fatigued and tired today with no complaints of chest pain, shortness of breath, was unable to cooperate much with therapy. OBJECTIVE: VITAL SIGNS: Blood pressure was 192/90 this morning with a pulse of 58 and did go down to 146/77, but now it is 165/67 with a pulse remaining at 57. LUNGS: Clear. CARDIAC: Showed regular rhythm. ABDOMEN: Soft and nontender. The patient did eat well today. ASSESSMENT: 1. Persistent bradycardia with fatigue. 2. Persistent hypertension, uncontrolled. 3. Right hip fracture healing well. 4. Old cerebrovascular accident and subdural hematoma. PLAN: 1. Discontinue carvedilol to hopefully improve pulse. 2. Increase amlodipine to 10 mg nightly. Monitor blood pressure. 3. Continue PT/OT. Job ID: [id number]
[2019-01-27] MEDS: Famotidine 20 MG TAB PER TUBE SCH (19:55)
[2019-01-27] MEDS: Atorvastatin Calcium 10 MG TAB PER TUBE SCH (19:55)
[2019-01-27] MEDS: Amlodipine 10 MG TAB PO SCH (19:55)
[2019-01-27] MEDS: Finasteride 5 MG TAB PO SCH (19:56)
[2019-01-27] MEDS: risperiDONE 0.25 MG TAB PER TUBE SCH (19:56)
[2019-01-27] MEDS: Tamsulosin HCl 0.4 MG CAP PO SCH (19:56)
[2019-01-27] MEDS: Melatonin 3 MG TAB PER TUBE PRN (19:57)
[2019-01-27] MEDS: traMADol HCl 50 MG TAB PO PRN (19:57)
[2019-01-28] MEDS: Acetaminophen 500 MG TAB PER TUBE SCH ×4 (01:04→17:27)
[2019-01-28] MEDS: Ibuprofen 200 MG TAB PO SCH ×3 (01:04→14:58)
[2019-01-28] MEDS: traMADol HCl 50 MG TAB PER TUBE SCH (06:27)
[2019-01-28] MEDS: Brimonidine Tartrate 0.2% Ophth Soln 5 ml Bottle EA EYE SCH ×3 (08:16→20:00)
[2019-01-28] MEDS: Escitalopram Oxalate 10 mg Tablet PER TUBE SCH (08:16)
[2019-01-28] MEDS: Folic Acid 1 MG TAB PER TUBE SCH (08:16)
[2019-01-28] MEDS: Multivitamin W/ Minerals 1 TAB PER TUBE SCH (08:16)
[2019-01-28] MEDS: Ascorbic Acid 500 mg Chewable Tablet PER TUBE SCH ×2 (08:16→19:14)
[2019-01-28] MEDS: Aspirin 81 mg Enteric Coated Tablet PER TUBE SCH ×2 (08:16→19:15)
[2019-01-28] MEDS: Dorzolamide HCl 2% Ophth Soln 10 ml Bottle EA EYE SCH ×3 (08:16→19:15)
[2019-01-28] MEDS: Senokot S 8.6-50 MG TAB PER TUBE SCH ×2 (08:17→19:16)
--- NOTE | 2019-01-28 19:13 | PRG ---
DATE OF SERVICE: 01/28/2019 SUBJECTIVE: The patient is still agitated today, and in fact, even more agitated and did not rest last night despite nurse being in room. He is not cooperating therapy because of fatigue. OBJECTIVE: VITAL SIGNS: Blood pressure is 132/71, pulse 67, O2 sats 96% on room air. LUNGS: Clear. CARDIAC: Shows regular rhythm. ABDOMEN: Soft and nontender. MUSCULOSKELETAL: Right hip shows healing incision. ASSESSMENT: 1. Increased confusion and agitation, limiting sleep and therapy. 2. Healing right lateral hip incision. 3. Old CVA and subdural hematoma. 4. Hypertension with fair control, off beta-blockers . PLAN: Clonazepam 0.5 mg tonight in addition to Risperdal as this was what the states worked for him at home. Hopefully, sleep well tonight and PT tomorrow. Job ID: [id number]
[2019-01-28] MEDS: Amlodipine 10 MG TAB PO SCH (19:14)
[2019-01-28] MEDS: Finasteride 5 MG TAB PO SCH (19:15)
[2019-01-28] MEDS: Atorvastatin Calcium 10 MG TAB PER TUBE SCH (19:15)
[2019-01-28] MEDS: Famotidine 20 MG TAB PER TUBE SCH (19:15)
[2019-01-28] MEDS: risperiDONE 0.25 MG TAB PER TUBE SCH (19:15)
[2019-01-28] MEDS: Tamsulosin HCl 0.4 MG CAP PO SCH (19:16)
[2019-01-28] MEDS: traMADol HCl 50 MG TAB PO PRN (19:16)
[2019-01-28] MEDS: clonazePAM 0.5 MG TAB PO PRN (19:17)
[2019-01-29] MEDS: Ibuprofen 200 MG TAB PO SCH ×4 (05:33→20:12)
[2019-01-29] MEDS: Acetaminophen 500 MG TAB PER TUBE SCH ×4 (05:34→17:24)
[2019-01-29 06:14] LABS: Bilirubin Negative (Negative); Blood, Urine Trace (Negative); Clarity Clear (Clear); Glucose, Urine (Dipstick) Negative (Negative); Leukocyte Moderate (Negative); Nitrite Negative (Negative); Protein, Urine (Dipstick) 30 mg/dL (Neg-Trace); Specific Gravity, Urine 1.015 (1.005-1.030); Urobilinogen 0.2 mg/dL (0.2-1.0); pH, Urine 8.5 (5.0-9.0)
[2019-01-29] MEDS: traMADol HCl 50 MG TAB PER TUBE SCH (06:15)
[2019-01-29 06:21] LABS: Bacteria/HPF 2+ HPF (None Seen); Squamous Epithelial 0-3 HPF (0-3); Urine Culture Reflex No No; WBC/HPF 21-50 HPF (0-3)
[2019-01-29] MEDS: Dorzolamide HCl 2% Ophth Soln 10 ml Bottle EA EYE SCH ×3 (08:34→20:11)
[2019-01-29] MEDS: Aspirin 81 mg Enteric Coated Tablet PER TUBE SCH ×2 (08:34→20:13)
[2019-01-29] MEDS: Ascorbic Acid 500 mg Chewable Tablet PER TUBE SCH ×2 (08:34→20:12)
[2019-01-29] MEDS: Brimonidine Tartrate 0.2% Ophth Soln 5 ml Bottle EA EYE SCH ×3 (08:34→20:11)
[2019-01-29] MEDS: Escitalopram Oxalate 10 mg Tablet PER TUBE SCH (08:35)
[2019-01-29] MEDS: Senokot S 8.6-50 MG TAB PER TUBE SCH ×2 (08:35→20:13)
[2019-01-29] MEDS: Folic Acid 1 MG TAB PER TUBE SCH (08:35)
[2019-01-29] MEDS: Multivitamin W/ Minerals 1 TAB PER TUBE SCH (08:35)
[2019-01-29] MEDS: Nitrofurantoin Macrocrystal 50 MG CAP PO SCH ×2 (08:35→20:13)
[2019-01-29] MEDS ORDERED: Sodium Chloride 0.9% 20 ML ONE (14:15)
[2019-01-29] MEDS: Sodium Chloride 0.9% 1,000 ML IV SCH (15:21)
--- NOTE | 2019-01-29 16:16 | ULT ---
ULTRASOUND OF URINARY BLADDER: Date: 01/29/19 HISTORY: 88-year-old male with urinary retention. Patient unable to follow instructions to void. Post-void zee ges could not be obtained. FINDINGS/IMPRESSION: The pre-void bladder volume measures 210 mL. The bladder wall is thickened, measuring 7 mm. POS: OFF
[2019-01-29 16:48] LABS: Anion Gap 15 mmol/L (10-20); BUN (Urea Nitrogen) 21 mg/dL (8.4-25.7); Calc. Creatinine Clearance 44 mL/min (70-130); Calcium 9.6 mg/dL (7.8-10.44); Carbon Dioxide 22 mmol/L (23-31); Chloride 106 mmol/L (98-107); Estimated GFR-MDRD 55; Glucose 111 mg/dL (83-110); Potassium 3.8 mmol/L (3.5-5.1); Sodium 139 mmol/L (136-145)
[2019-01-29] MEDS: cefTRIAXone\\ROCEPHIN 1 GM in Sodium Chloride 0.9% 100 ML IVPB SCH (18:13)
--- NOTE | 2019-01-29 18:41 | PRG ---
DATE OF SERVICE: 01/29/2019 SUBJECTIVE: The patient feels well. The patient is minimally responsive and lethargic this afternoon. Did not sleep at all last night. Has eaten only one meal today and has not put out any urine. OBJECTIVE: Shows, however, his vital signs have been stable with blood pressure 150/84, pulse 81, O2 saturations 95%. LUNGS: Clear. CARDIAC: Showed regular rhythm. ABDOMEN: Soft and nontender. Bladder ultrasound showed only 200 mL retention. LABORATORY DATA: Laboratories did show white count 9600, hematocrit 30, hemoglobin 9. BUN 21, creatinine 1.24, sodium 139, potassium 3.8, chloride 106, bicarb 22. Urinalysis did show urinary tract infection with 21 to 50 white cells and 2+ bacteria. ASSESSMENT: Increased lethargy, altered mental status, unknown etiology, possibly intracranial, and we will get CT scan in the a.m., but also possibly due to new urinary tract infection and is being treated with IV fluids and IV Rocephin as recent Escherichia coli urinary tract infection; however, there is concern for no urine output with only minimal retention despite him having normal renal function. We will continue IV fluid of normal saline at 75 mL an hour and repeat ultrasound in the a.m., as well as repeat CT scan of the brain. Prognosis is somewhat guarded, and the patient's family has requested not to be resuscitated. Job ID: [id number]
[2019-01-29] MEDS: Atorvastatin Calcium 10 MG TAB PER TUBE SCH (20:12)
[2019-01-29] MEDS: Tamsulosin HCl 0.4 MG CAP PO SCH (20:12)
[2019-01-29] MEDS: Famotidine 20 MG TAB PER TUBE SCH (20:12)
[2019-01-29] MEDS: Melatonin 3 MG TAB PER TUBE PRN (20:12)
[2019-01-29] MEDS: Amlodipine 10 MG TAB PO SCH (20:13)
[2019-01-29] MEDS: risperiDONE 0.25 MG TAB PER TUBE SCH (20:13)
[2019-01-29] MEDS: Finasteride 5 MG TAB PO SCH (20:13)
[2019-01-30] MEDS: Acetaminophen 500 MG TAB PER TUBE SCH ×5 (00:42→23:46)
[2019-01-30] MEDS: Sodium Chloride 0.9% 1,000 ML IV SCH ×2 (03:21→17:31)
[2019-01-30] MEDS: traMADol HCl 50 MG TAB PER TUBE SCH (05:59)
[2019-01-30] MEDS: Ibuprofen 200 MG TAB PO SCH ×3 (06:01→20:15)
[2019-01-30] MEDS: Aspirin 81 mg Enteric Coated Tablet PER TUBE SCH ×2 (09:30→20:17)
[2019-01-30] MEDS: Ascorbic Acid 500 mg Chewable Tablet PER TUBE SCH ×2 (09:30→20:17)
[2019-01-30] MEDS: Dorzolamide HCl 2% Ophth Soln 10 ml Bottle EA EYE SCH ×3 (09:31→20:15)
[2019-01-30] MEDS: Brimonidine Tartrate 0.2% Ophth Soln 5 ml Bottle EA EYE SCH ×3 (09:31→20:15)
[2019-01-30] MEDS: Folic Acid 1 MG TAB PER TUBE SCH (09:32)
[2019-01-30] MEDS: Escitalopram Oxalate 10 mg Tablet PER TUBE SCH (09:32)
[2019-01-30] MEDS: Senokot S 8.6-50 MG TAB PER TUBE SCH ×2 (09:33→20:16)
[2019-01-30] MEDS: Nitrofurantoin Macrocrystal 50 MG CAP PO SCH ×2 (09:33→20:17)
[2019-01-30] MEDS: Multivitamin W/ Minerals 1 TAB PER TUBE SCH (09:33)
--- NOTE | 2019-01-30 15:32 | CT ---
CT BRAIN WITHOUT CONTRAST: 01/30/19 HISTORY: Altered mental status. FINDINGS: Comparison made to exam of 01/20/19. Exam is limited due to motion artifact. Changes of cortical atrophy, chronic small vessel ischemic disease and old infarctions in parieto-occ ipital lobes are again seen. The ventricular size is appropriate and the basilar cisterns patent. No evidence of acute infarct, hemorrhage, midline shift or abnormal extra-axial fluid collections seen. The bony calvarium appears grossly intact. IMPRESSION: No definite CT evidence of acute intracranial process. POS: TPC
[2019-01-30] MEDS: cefTRIAXone\\ROCEPHIN 1 GM in Sodium Chloride 0.9% 100 ML IVPB SCH (17:29)
[2019-01-30] MEDS: Melatonin 3 MG TAB PER TUBE PRN (20:15)
[2019-01-30] MEDS: Tamsulosin HCl 0.4 MG CAP PO SCH (20:16)
[2019-01-30] MEDS: Famotidine 20 MG TAB PER TUBE SCH (20:16)
[2019-01-30] MEDS: risperiDONE 0.25 MG TAB PER TUBE SCH (20:16)
[2019-01-30] MEDS: Atorvastatin Calcium 10 MG TAB PER TUBE SCH (20:16)
[2019-01-30] MEDS: Amlodipine 10 MG TAB PO SCH (20:16)
[2019-01-30] MEDS: Finasteride 5 MG TAB PO SCH (20:17)
[2019-01-30] MEDS: traMADol HCl 50 MG TAB PO PRN (22:56)
[2019-01-31] MEDS: clonazePAM 0.5 MG TAB PO PRN (02:33)
[2019-01-31] MEDS: traMADol HCl 50 MG TAB PER TUBE SCH (05:25)
[2019-01-31] MEDS: Ibuprofen 200 MG TAB PO SCH ×3 (05:25→20:55)
[2019-01-31] MEDS: Acetaminophen 500 MG TAB PER TUBE SCH ×4 (05:26→22:27)
[2019-01-31] MEDS: Sodium Chloride 0.9% 1,000 ML IV SCH ×2 (05:29→20:57)
[2019-01-31] MEDS: Brimonidine Tartrate 0.2% Ophth Soln 5 ml Bottle EA EYE SCH ×3 (08:53→20:54)
[2019-01-31] MEDS: Dorzolamide HCl 2% Ophth Soln 10 ml Bottle EA EYE SCH ×3 (08:53→20:54)
[2019-01-31] MEDS: Senokot S 8.6-50 MG TAB PER TUBE SCH ×2 (08:54→20:55)
[2019-01-31] MEDS: Ascorbic Acid 500 mg Chewable Tablet PER TUBE SCH ×2 (08:54→20:55)
[2019-01-31] MEDS: Escitalopram Oxalate 10 mg Tablet PER TUBE SCH (08:54)
[2019-01-31] MEDS: Nitrofurantoin Macrocrystal 50 MG CAP PO SCH ×2 (08:55→20:55)
[2019-01-31] MEDS: Multivitamin W/ Minerals 1 TAB PER TUBE SCH (08:55)
[2019-01-31] MEDS: Aspirin 81 mg Enteric Coated Tablet PER TUBE SCH ×2 (08:56→20:56)
[2019-01-31] MEDS: Folic Acid 1 MG TAB PER TUBE SCH (08:56)
--- NOTE | 2019-01-31 10:22 | PRG ---
DATE OF SERVICE: 01/31/2019 Mr. Vazquez is a very pleasant 88-year-old white male, patient of Dr. Noah Serrano, who unfortunately fell and had a subdural hematoma. He also fractured his hip. He was transferred to [facility] for physical therapy and occupational therapy, but his mind has been poor. Urinalysis revealed a urinary tract infection and he typically has E coli. He was started on Rocephin and Macrobid by Dr. Asher. Sensitivities are coming in today, looks like he is most likely going to be sensitive again to Rocephin and nitrofurantoin. Unfortunately, the patient has been doing very poor in regard to therapy. Dr. Asher recommended fluids and antibiotics over the weekend to see if he clears up to get re-evaluated for therapy on Saturday. SUBJECTIVE: This morning, the patient had a poor night and did not get a sleep until after midnight, was somewhat combative and agitated after 6 o'clock yesterday evening. This morning, he is still resting and the nurses requested not to wake him up at least until his family gets here. He has no family at bedside at this time. OBJECTIVE: VITAL SIGNS: This morning, reveal blood pressure 144/80, pulse 81, respirations 18, O2 saturation 95% to 96% on room air, and T-max 98.5. GENERAL: This is a well-developed, well-nourished, but thin 88-year-old white male, presently resting and sleeping well. HEENT: Normocephalic and nontraumatic cranium. CHEST: Clear to auscultation. No rales, no rhonchi, no wheezes are heard. HEART: Reveals a regular rate and rhythm without murmurs, gallops, or rubs. ABDOMEN: Soft with normal bowel sounds. GENITOURINARY: Deferred. EXTREMITIES: Reveal no edema. The patient is still presently sleeping. ASSESSMENT: 1. Altered mental status with agitation last night. CT scan was done, which was unremarkable. 2. Escherichia coli infection, sensitive to Rocephin and nitrofurantoin. 3. Dehydration. We will continue normal saline at 75 mL/hour. 4. Hypertension. 5. Gastroesophageal reflux disease. 6. Congestive heart failure. 7. History of atrial fibrillation. 8. Macular degeneration. 9. Generalized weakness. 10. Subdural hematoma. PLAN: 1. Continue present medications. 2. Re-evaluate on Saturday for PT and OT. 3. Stable atrial fibrillation with a regular rate today. 4. Hypertension, controlled. 5. Aspiration risk with PEG tube feedings and comfort feedings per family, on pureed diet. 6. Repeat labs p.r.n. 7. Supportive care. 8. The patient is a DNR. Job ID: [id number]
[2019-01-31] MEDS: traMADol HCl 50 MG TAB PO PRN ×2 (15:04→20:56)
[2019-01-31] MEDS: cefTRIAXone\\ROCEPHIN 1 GM in Sodium Chloride 0.9% 100 ML IVPB SCH (17:24)
[2019-01-31] MEDS: Tamsulosin HCl 0.4 MG CAP PO SCH (20:55)
[2019-01-31] MEDS: risperiDONE 0.25 MG TAB PER TUBE SCH (20:56)
[2019-01-31] MEDS: Famotidine 20 MG TAB PER TUBE SCH (20:56)
[2019-01-31] MEDS: Melatonin 3 MG TAB PER TUBE PRN (20:56)
[2019-01-31] MEDS: Amlodipine 10 MG TAB PO SCH (20:56)
[2019-01-31] MEDS: Atorvastatin Calcium 10 MG TAB PER TUBE SCH (20:57)
[2019-01-31] MEDS: Finasteride 5 MG TAB PO SCH (20:58)
[2019-02-01] MEDS: Acetaminophen 500 MG TAB PER TUBE SCH ×4 (05:17→23:51)
[2019-02-01] MEDS: traMADol HCl 50 MG TAB PER TUBE SCH ×2 (05:17→09:05)
[2019-02-01] MEDS: Ibuprofen 200 MG TAB PO SCH ×3 (05:18→20:31)
[2019-02-01] MEDS: Brimonidine Tartrate 0.2% Ophth Soln 5 ml Bottle EA EYE SCH ×3 (09:03→20:28)
[2019-02-01] MEDS: Dorzolamide HCl 2% Ophth Soln 10 ml Bottle EA EYE SCH ×3 (09:03→20:28)
[2019-02-01] MEDS: Aspirin 81 mg Enteric Coated Tablet PER TUBE SCH ×2 (09:04→20:31)
[2019-02-01] MEDS: Folic Acid 1 MG TAB PER TUBE SCH (09:04)
[2019-02-01] MEDS: Multivitamin W/ Minerals 1 TAB PER TUBE SCH (09:04)
[2019-02-01] MEDS: Senokot S 8.6-50 MG TAB PER TUBE SCH ×2 (09:05→20:31)
[2019-02-01] MEDS: Nitrofurantoin Macrocrystal 50 MG CAP PO SCH ×2 (09:05→20:29)
[2019-02-01] MEDS: Ascorbic Acid 500 mg Chewable Tablet PER TUBE SCH ×2 (09:05→20:31)
[2019-02-01] MEDS: Escitalopram Oxalate 10 mg Tablet PER TUBE SCH (09:05)
[2019-02-01] MEDS: traMADol HCl 50 MG TAB PO PRN ×2 (10:29→20:29)
--- NOTE | 2019-02-01 10:30 | PRG ---
DATE OF SERVICE: 02/01/2019 SUBJECTIVE: Mr. Vazquez is an 88-year-old white male, patient of Dr. Serrano. Unfortunately, he fell and has subdural hematoma. Also, fractured his hip. These were stabilized and ORIF was done. He was transferred to [facility] for PT and OT. Unfortunately, he has been unable to follow instructions well for PT. It was determined that he had urinary tract infection. He was started on Rocephin and Macrobid. He seems to be much more responsive and able to follow my commands this morning. We will try to do therapy again tomorrow and see how he does. If he does well, we will continue with PT and OT. If he does not do well, he will need to be transferred to a nursing care facility. This morning, the patient is awake and recognizes me. He responds to all my questions appropriately. He knows that his is in the room. His and I had significant discussions about going to the halfway and what that entails. She will go visit some of the nursing homes and make a decision about what she needs to do if he is not able to participate in therapy. OBJECTIVE: VITAL SIGNS: This morning reveal blood pressure slightly elevated at 187/88, pulse 77, respirations 20, O2 saturation 93% to 96% on room air, T-max 97.8. GENERAL: This is a well-developed, well-nourished, elderly white male, in no apparent distress today. HEENT: Reveals normocephalic, nontraumatic cranium. Pupils are equally round and reactive. Extraocular movements are intact. Nose and throat are slightly dry. NECK: Supple without masses, nodes, or bruits. CHEST: Clear to auscultation. No rales, rhonchi, wheezes, or cough is heard. HEART: Reveals a regular rate and rhythm without murmurs, gallops, or rubs. ABDOMEN: Soft, nontender without organomegaly. Normal bowel sounds are noted. No rebound or guarding is noted. GENITOURINARY: Deferred. EXTREMITIES: Reveal no clubbing, cyanosis, or edema. ASSESSMENT: 1. The patient's altered mental state is much improved. The patient slept well last night, was not agitated. His CT previously done was unremarkable. 2. The patient has Escherichia coli infection, sensitive to Rocephin and nitrofurantoin. 3. Dehydration. Continue normal saline at 75 mL an hour. 4. Hypertension. 5. Gastroesophageal reflux disease. 6. Congestive heart failure. 7. History of atrial fibrillation. 8. Macular degeneration. 9. Generalized weakness. 10. Subdural hematoma. PLAN: 1. Continue present medication. 2. Re-evaluate with PT and OT on Saturday. 3. Stable atrial fibrillation with regular rate today. 4. Hypertension, fluctuates since labile. 5. Aspiration precautions with PEG tube feedings and comfort feedings per family. 6. Repeat labs p.r.n. 7. Supportive care. 8. This patient is a DNR. 9. Anticipating possible halfway placement if the patient does not and is not able to follow instructions and directions in PT and OT. Job ID: [id number]
[2019-02-01] MEDS: Sodium Chloride 0.9% 1,000 ML IV SCH ×2 (15:32→20:46)
[2019-02-01] MEDS: cefTRIAXone\\ROCEPHIN 1 GM in Sodium Chloride 0.9% 100 ML IVPB SCH (17:18)
[2019-02-01] MEDS: Melatonin 3 MG TAB PER TUBE PRN (20:29)
[2019-02-01] MEDS: Amlodipine 10 MG TAB PO SCH (20:29)
[2019-02-01] MEDS: Atorvastatin Calcium 10 MG TAB PER TUBE SCH (20:31)
[2019-02-01] MEDS: Tamsulosin HCl 0.4 MG CAP PO SCH (20:31)
[2019-02-01] MEDS: Famotidine 20 MG TAB PER TUBE SCH (20:31)
[2019-02-01] MEDS: risperiDONE 0.25 MG TAB PER TUBE SCH (20:31)
[2019-02-01] MEDS: Finasteride 5 MG TAB PO SCH (20:32)
[2019-02-02] MEDS: Acetaminophen 500 MG TAB PER TUBE SCH ×3 (05:52→17:08)
[2019-02-02] MEDS: Ibuprofen 200 MG TAB PO SCH ×3 (05:52→21:03)
[2019-02-02] MEDS: Sodium Chloride 0.9% 1,000 ML IV SCH (05:52)
[2019-02-02] MEDS: traMADol HCl 50 MG TAB PER TUBE SCH (05:53)
[2019-02-02] MEDS: Escitalopram Oxalate 10 mg Tablet PER TUBE SCH (08:04)
[2019-02-02] MEDS: Dorzolamide HCl 2% Ophth Soln 10 ml Bottle EA EYE SCH ×3 (08:04→21:03)
[2019-02-02] MEDS: Brimonidine Tartrate 0.2% Ophth Soln 5 ml Bottle EA EYE SCH ×3 (08:04→21:02)
[2019-02-02] MEDS: Aspirin 81 mg Enteric Coated Tablet PER TUBE SCH ×2 (08:04→21:04)
[2019-02-02] MEDS: Ascorbic Acid 500 mg Chewable Tablet PER TUBE SCH ×2 (08:04→21:04)
[2019-02-02] MEDS: Folic Acid 1 MG TAB PER TUBE SCH (08:05)
[2019-02-02] MEDS: Multivitamin W/ Minerals 1 TAB PER TUBE SCH (08:05)
[2019-02-02] MEDS: Senokot S 8.6-50 MG TAB PER TUBE SCH ×2 (08:05→21:03)
[2019-02-02] MEDS: Nitrofurantoin Macrocrystal 50 MG CAP PO SCH ×2 (08:05→21:03)
--- NOTE | 2019-02-02 10:13 | PRG ---
DATE OF SERVICE: 02/02/2019 SUBJECTIVE: Mr. Vazquez is an 88-year-old white male patient of Dr. Serrano, who had fell and had a subdural hematoma and a fractured hip. These were eventually stabilized and ORIF was done. He was transferred to [facility] for PT and OT. Unfortunately, the patient's dementia has progressed to the point, he is unable to follow instructions. He did have urinary tract infection, but does not seem to have gotten a whole lot better. He is going to be evaluated again for PT and OT today. If he is not able to participate, then he will have to be moved to a nursing care facility. His and I did discuss nursing homes again today. OBJECTIVE: VITAL SIGNS: Today revealed blood pressure 176/81, pulse 69 to 78, respirations 18, O2 saturation 96% on room air, and T-max 98.1. GENERAL: On physical exam, this is a well-developed, well-nourished, very pleasant, 88-year-old white male, in no apparent distress at this time. HEENT: Reveals normocephalic and nontraumatic cranium. Pupils equal, round, and reactive. Extraocular movements are intact. Nose and throat are dry. NECK: Supple without masses, nodes, or bruits. CHEST: Clear to auscultation. No rales, rhonchi, wheezes, or cough is heard. HEART: Reveals a regular rate and rhythm without murmurs, gallops, or rubs. ABDOMEN: Soft and nontender without organomegaly. Normal bowel sounds are noted. No rebound or guarding is noted. : Deferred. EXTREMITIES: Revealed no clubbing, cyanosis, or edema. NEUROLOGIC: The patient is able to talk and respond, but is not able to follow any directions. ASSESSMENT: 1. Altered mental status, improved, but still not able to follow directions. 2. Escherichia coli infection, sensitive to Rocephin, nitrofurantoin. 3. Dehydration is resolved. We will stop the IV 75 mL an hour. 4. Hypertension. 5. Gastroesophageal reflux disease. 6. Congestive heart failure. 7. Atrial fibrillation. 8. Macular degeneration. 9. Generalized weakness. 10. Subdural hematoma. PLAN: 1. Continue present medications. 2. Continue IV Rocephin. 3. PT and OT to re-evaluate today. 4. Stable atrial fibrillation. 5. Continue to monitor the patient's blood pressure closely. 6. Aspiration precautions with tube feedings. 7. Repeat labs p.r.n. 8. Supportive care. 9. DNR. 10. Anticipate senior living placement. Job ID: [id number]
[2019-02-02] MEDS: cefTRIAXone\\ROCEPHIN 1 GM in Sodium Chloride 0.9% 100 ML IVPB SCH (17:08)
[2019-02-02] MEDS: Famotidine 20 MG TAB PER TUBE SCH (21:03)
[2019-02-02] MEDS: traMADol HCl 50 MG TAB PO PRN (21:04)
[2019-02-02] MEDS: Melatonin 3 MG TAB PER TUBE PRN (21:05)
[2019-02-02] MEDS: Tamsulosin HCl 0.4 MG CAP PO SCH (21:05)
[2019-02-02] MEDS: risperiDONE 0.25 MG TAB PER TUBE SCH (21:05)
[2019-02-02] MEDS: Atorvastatin Calcium 10 MG TAB PER TUBE SCH (21:05)
[2019-02-02] MEDS: Amlodipine 10 MG TAB PO SCH (21:05)
[2019-02-02] MEDS: Finasteride 5 MG TAB PO SCH (21:06)
[2019-02-02] MEDS: clonazePAM 0.5 MG TAB PO PRN (23:08)
[2019-02-03] MEDS: Acetaminophen 500 MG TAB PER TUBE SCH ×3 (01:22→17:14)
[2019-02-03] MEDS: traMADol HCl 50 MG TAB PER TUBE SCH ×2 (05:47→08:54)
[2019-02-03] MEDS: Ibuprofen 200 MG TAB PO SCH ×3 (05:47→21:24)
[2019-02-03] MEDS: Ascorbic Acid 500 mg Chewable Tablet PER TUBE SCH ×2 (08:51→21:21)
[2019-02-03] MEDS: Brimonidine Tartrate 0.2% Ophth Soln 5 ml Bottle EA EYE SCH ×3 (08:51→21:22)
[2019-02-03] MEDS: Aspirin 81 mg Enteric Coated Tablet PER TUBE SCH ×2 (08:51→21:22)
[2019-02-03] MEDS: Folic Acid 1 MG TAB PER TUBE SCH (08:52)
[2019-02-03] MEDS: Dorzolamide HCl 2% Ophth Soln 10 ml Bottle EA EYE SCH ×3 (08:52→21:26)
[2019-02-03] MEDS: Senokot S 8.6-50 MG TAB PER TUBE SCH ×2 (08:52→21:23)
[2019-02-03] MEDS: Escitalopram Oxalate 10 mg Tablet PER TUBE SCH (08:52)
[2019-02-03] MEDS: Multivitamin W/ Minerals 1 TAB PER TUBE SCH (08:52)
[2019-02-03] MEDS: Nitrofurantoin Macrocrystal 50 MG CAP PO SCH ×2 (08:52→21:23)
--- NOTE | 2019-02-03 10:36 | PRG ---
DATE OF SERVICE: 02/03/2019 SUBJECTIVE: Mr. Vazquez is a very pleasant 88-year-old white male patient of Dr. Serrano. He unfortunately fell, had a subdural hematoma, and fractured hip. These were stabilized and ORIF was done. He was transferred to [facility] for PT and OT. Unfortunately, the patient's dementia has gotten progressively worse and he is unable to follow directions well. PT states that he will need to go by the end of the week. The patient's did go by both [place] and , therefore the patient will be moving to the if he gets approved by the establishment therapy. He is supposed to call me today and let me know how he is doing. OBJECTIVE: VITAL SIGNS: Today reveal blood pressure 155/90, pulse 80 to 85, respirations 20, O2 saturation 95% on room air, T-max 99.1. GENERAL: This is a well-developed elderly white male who occasionally yells out, but this morning is answering my questions and talking well. HEENT: Reveals normocephalic and nontraumatic cranium. Pupils equal, round, reactive. Extraocular movements are intact. Nose and throat are slightly dry. NECK: Supple without masses, nodes, or bruits. CHEST: Clear to auscultation. No rales, rhonchi, wheezes are heard. HEART: Reveals a regular rate and rhythm without murmurs, gallops, or rubs. ABDOMEN: Soft and nontender without organomegaly. Normal bowel sounds are noted. No rebound or guarding is noted. : Deferred. EXTREMITIES: Reveal no clubbing, cyanosis, or edema. The patient is able to talk and respond again this morning, but not really able to follow directions very well. ASSESSMENT: 1. Altered mental status, much improved. 2. Not able to follow directions. 3. Escherichia coli infection sensitive to Rocephin. We will finish on Saturday. 4. Dehydration, resolved. We will stop IV. 5. Hypertension. 6. Gastroesophageal reflux disease. 7. Congestive heart failure. 8. Atrial fibrillation. 9. Macular degeneration. 10. Generalized weakness. 11. Subdural hematoma. PLAN: 1. Continue present medications. 2. Continue IV medicine of Rocephin, which ends tomorrow. 3. PT and OT to re-evaluate. 4. Stable atrial fibrillation. 5. Continue to monitor the patient's blood pressure closely. 6. Aspiration precaution with tube feedings. 7. Repeat labs p.r.n. tomorrow. 8. Supportive care. 9. DNR. 10. Anticipate discharge to the [facility] on [facility]. Job ID: [id number]
[2019-02-03] MEDS: cefTRIAXone\\ROCEPHIN 1 GM in Sodium Chloride 0.9% 100 ML IVPB SCH (17:18)
[2019-02-03] MEDS: Finasteride 5 MG TAB PO SCH (21:14)
[2019-02-03] MEDS: Amlodipine 10 MG TAB PO SCH (21:19)
[2019-02-03] MEDS: Atorvastatin Calcium 10 MG TAB PER TUBE SCH (21:22)
[2019-02-03] MEDS: Famotidine 20 MG TAB PER TUBE SCH (21:22)
[2019-02-03] MEDS: risperiDONE 0.25 MG TAB PER TUBE SCH (21:23)
[2019-02-03] MEDS: Tamsulosin HCl 0.4 MG CAP PO SCH (21:23)
[2019-02-04] MEDS: Acetaminophen 500 MG TAB PER TUBE SCH ×4 (00:22→17:33)
[2019-02-04 05:31] LABS: #Basophils 0.1 thou/uL (0.0-0.2); #Eosinphils 1.5 thou/uL (0.0-0.7); #Lymphocytes 1.8 thou/uL (1.20-3.40); #Monocytes 1.1 thou/uL (0.11-0.59); %Basophils 1.1 % (0.0-1.0); %Eosinophils 15.7 % (0.0-10.0); %Lymphocytes 19.2 % (21.0-51.0); %Monocytes 11.5 % (0.0-10.0); %Neutrophils 52.5 % (42.0-75.0); Hemoglobin 10.3 g/dL (14.0-18.0); Mean Corpuscular HGB CONC 31.4 g/dL (32.0-36.0); Mean Corpuscular Hemoglobin 26.5 pg (27.0-31.0); Mean Corpuscular Volume 84.4 fL (78.0-98.0); Mean Platelet Volume 6.4 fL (7.4-10.4); Platelet Count 174 thou/uL (130-400); RBC Distribution Width 15.9 % (11.5-14.5); Red Blood Cell (RBC) Count 3.89 mill/uL (4.70-6.10); White Blood Cell (WBC) Count 9.6 thou/uL (4.8-10.8)
[2019-02-04 05:46] LABS: ALT (SGPT) 23 U/L (8-55); AST (SGOT) 21 U/L (5-34); Albumin 3.4 g/dL (3.4-4.8); Alkaline Phosphatase 101 U/L (40-150); Anion Gap 14 mmol/L (10-20); BUN (Urea Nitrogen) 19 mg/dL (8.4-25.7); Bilirubin, Total 0.4 mg/dL (0.2-1.2); Calc. Creatinine Clearance 56 mL/min (70-130); Calcium 9.7 mg/dL (7.8-10.44); Carbon Dioxide 23 mmol/L (23-31); Chloride 105 mmol/L (98-107); Estimated GFR-MDRD 72; Globulin 3.6 g/dL (2.4-3.5); Glucose 98 mg/dL (83-110); Potassium 3.1 mmol/L (3.5-5.1); Sodium 139 mmol/L (136-145)
[2019-02-04] MEDS: Ibuprofen 200 MG TAB PO SCH ×3 (06:19→21:15)
[2019-02-04] MEDS: traMADol HCl 50 MG TAB PER TUBE SCH (06:25)
[2019-02-04] MEDS: Dorzolamide HCl 2% Ophth Soln 10 ml Bottle EA EYE SCH ×3 (09:49→21:17)
[2019-02-04] MEDS: Brimonidine Tartrate 0.2% Ophth Soln 5 ml Bottle EA EYE SCH ×3 (09:49→21:17)
[2019-02-04] MEDS: Senokot S 8.6-50 MG TAB PER TUBE SCH ×2 (09:49→21:15)
[2019-02-04] MEDS: Ascorbic Acid 500 mg Chewable Tablet PER TUBE SCH ×2 (09:50→21:16)
[2019-02-04] MEDS: Multivitamin W/ Minerals 1 TAB PER TUBE SCH (09:50)
[2019-02-04] MEDS: Nitrofurantoin Macrocrystal 50 MG CAP PO SCH ×2 (09:50→21:15)
[2019-02-04] MEDS: Aspirin 81 mg Enteric Coated Tablet PER TUBE SCH ×2 (09:50→21:16)
[2019-02-04] MEDS: Folic Acid 1 MG TAB PER TUBE SCH (09:50)
[2019-02-04] MEDS: Escitalopram Oxalate 10 mg Tablet PER TUBE SCH (09:50)
[2019-02-04] MEDS: cefTRIAXone\\ROCEPHIN 1 GM in Sodium Chloride 0.9% 100 ML IVPB SCH (17:33)
--- NOTE | 2019-02-04 19:02 | PRG ---
DATE OF SERVICE: 02/04/2019 SUBJECTIVE: Mr. Vazquez is a very pleasant 88-year-old white male, patient of Dr. Serrano. Unfortunately, he fell and had a subdural hematoma and a fractured hip. He had an ORIF done. He was transferred to [facility] for PT and OT. Unfortunately, the patient's dementia has gotten progressively worse. He is unable to follow directions and follow up physical therapy and occupational therapy directions. He does not qualify for PT and will be discharged. The patient has been excepted to the on [facility] by [facility], and expected discharge is Saturday. The and I did have a long discussion about [facility] [place] and , and we both think that the will be much better for him. OBJECTIVE: VITAL SIGNS: Today reveal blood pressure 145/68, pulse 73 to 59, respirations 18, O2 saturation 96% to 95% on room air, and T-max 96.4. GENERAL: This is a well-developed, well-nourished white male, in no apparent distress at this time. HEENT: Reveals normocephalic and nontraumatic cranium. Pupils are equal, round, reactive. Extraocular movements are intact. Nose and throat are slightly dry. NECK: Supple without masses, nodes, or bruits. CHEST: Clear to auscultation. No rales, rhonchi, wheezes, or cough is heard. HEART: Reveals a regular rate and rhythm without murmurs, gallops, or rubs. ABDOMEN: Soft, nontender without organomegaly. Normal bowel sounds are noted. No rebound or guarding is noted. : Deferred. EXTREMITIES: Reveal no clubbing, cyanosis, or edema. The patient does respond at times, but at times, does not like to be forced into therapy. ASSESSMENT: 1. Altered mental status, much improved. 2. Still not able to follow directions. 3. Escherichia coli infection since the Rocephin finishes on Saturday. 4. Dehydration, resolved. We will stop IVs. 5. Hypertension. 6. Gastroesophageal reflux disease. 7. Congestive heart failure. 8. Atrial fibrillation. 9. Macular degeneration. 10. Generalized weakness. 11. Subdural hematoma. PLAN: 1. Continue present medications. 2. Finish Rocephin tomorrow evening. 3. Continue PT and OT as able. 4. Atrial fibrillation will be monitored for RVR. 5. Continue to monitor the patient's blood pressure closely. 6. Aspiration precautions with tube feedings. 7. Actually, his labs were repeated today, which were actually improved. 8. Supportive care. 9. DNR. 10. Anticipate discharge to the [facility] on [facility] on Saturday. Job ID: [id number]
[2019-02-04] MEDS: Amlodipine 10 MG TAB PO SCH (21:15)
[2019-02-04] MEDS: Tamsulosin HCl 0.4 MG CAP PO SCH (21:15)
[2019-02-04] MEDS: risperiDONE 0.25 MG TAB PER TUBE SCH (21:16)
[2019-02-04] MEDS: Famotidine 20 MG TAB PER TUBE SCH (21:16)
[2019-02-04] MEDS: Atorvastatin Calcium 10 MG TAB PER TUBE SCH (21:16)
[2019-02-04] MEDS: Melatonin 3 MG TAB PER TUBE PRN (21:16)
[2019-02-04] MEDS: traMADol HCl 50 MG TAB PO PRN (21:16)
[2019-02-04] MEDS: Finasteride 5 MG TAB PO SCH (21:18)
[2019-02-05] MEDS: Acetaminophen 500 MG TAB PER TUBE SCH ×4 (05:22→17:35)
[2019-02-05] MEDS: traMADol HCl 50 MG TAB PER TUBE SCH (05:23)
[2019-02-05] MEDS: Ibuprofen 200 MG TAB PO SCH ×3 (05:23→21:16)
[2019-02-05] MEDS: Brimonidine Tartrate 0.2% Ophth Soln 5 ml Bottle EA EYE SCH ×3 (08:53→21:13)
[2019-02-05] MEDS: Dorzolamide HCl 2% Ophth Soln 10 ml Bottle EA EYE SCH ×3 (08:53→21:11)
[2019-02-05] MEDS: Folic Acid 1 MG TAB PER TUBE SCH (08:54)
[2019-02-05] MEDS: Senokot S 8.6-50 MG TAB PER TUBE SCH ×2 (08:54→21:12)
[2019-02-05] MEDS: Escitalopram Oxalate 10 mg Tablet PER TUBE SCH (08:54)
[2019-02-05] MEDS: Ascorbic Acid 500 mg Chewable Tablet PER TUBE SCH ×2 (08:54→21:12)
[2019-02-05] MEDS: Aspirin 81 mg Enteric Coated Tablet PER TUBE SCH ×2 (08:54→21:13)
[2019-02-05] MEDS: Multivitamin W/ Minerals 1 TAB PER TUBE SCH (09:30)
[2019-02-05] MEDS ORDERED: Potassium Chloride 20 MEQ TAB PO SCH (13:30)
--- NOTE | 2019-02-05 15:21 | PRG ---
DATE OF SERVICE: 02/05/2019 SUBJECTIVE: Mr. Vazquez is doing the same. Denies any complaints. Discussed with nursing. He apparently is going to assisted living tomorrow with home health. No changes in medications have been done. He states that he does not need any prescriptions. OBJECTIVE: VITAL SIGNS: He is afebrile, heart rate 70, respirations 18, oxygen saturation 95% on room air, blood pressure 175/89. CARDIOVASCULAR: S1 and S2 plus. RESPIRATORY: Normal vesicular breath sounds. ABDOMEN: Soft and nontender. Bowel sounds heard in all quadrants. EXTREMITIES: Without cyanosis or clubbing. LABORATORY DATA: His potassium was low yesterday at 3.1. He is on 20 mEq b.i.d., and it was started on January 21. I will give him an extra dose. His antibiotics are supposed to finish today. IMPRESSION: 1. Escherichia coli urinary tract infection. 2. Hypertension. 3. Gastroesophageal reflux disease. 4. Atrial fibrillation. 5. History of subdural hematoma. PLAN: 1. Continue current medications. 2. Nutritional support. 3. Discharge planning. 4. Apparently, home health has been arranged. 5. No medication changes have been done. 6. The patient was advised to follow up with his PCP in the next week, and he was advised to call us with any questions or concerns. Job ID: [id number]
[2019-02-05] MEDS: clonazePAM 0.5 MG TAB PO PRN (19:27)
[2019-02-05] MEDS: Amlodipine 10 MG TAB PO SCH (21:12)
[2019-02-05] MEDS: Tamsulosin HCl 0.4 MG CAP PO SCH (21:12)
[2019-02-05] MEDS: Finasteride 5 MG TAB PO SCH (21:12)
[2019-02-05] MEDS: Atorvastatin Calcium 10 MG TAB PER TUBE SCH (21:12)
[2019-02-05] MEDS: Famotidine 20 MG TAB PER TUBE SCH (21:13)
[2019-02-05] MEDS: Melatonin 3 MG TAB PER TUBE PRN (21:13)
[2019-02-05] MEDS: risperiDONE 0.25 MG TAB PER TUBE SCH (21:13)
[2019-02-06] MEDS: Acetaminophen 500 MG TAB PER TUBE SCH ×3 (00:26→12:25)
[2019-02-06] MEDS: traMADol HCl 50 MG TAB PER TUBE SCH (05:41)
[2019-02-06] MEDS: Ibuprofen 200 MG TAB PO SCH ×2 (05:44→13:25)
[2019-02-06 06:16] LABS: Anion Gap 14 mmol/L (10-20); BUN (Urea Nitrogen) 21 mg/dL (8.4-25.7); Calc. Creatinine Clearance 43 mL/min (70-130); Calcium 9.6 mg/dL (7.8-10.44); Carbon Dioxide 24 mmol/L (23-31); Chloride 105 mmol/L (98-107); Estimated GFR-MDRD 54; Glucose 97 mg/dL (83-110); Potassium 3.3 mmol/L (3.5-5.1); Sodium 140 mmol/L (136-145)
[2019-02-06] MEDS ORDERED: Lisinopril 5 MG TAB PO SCH (09:00)
[2019-02-06] MEDS: Escitalopram Oxalate 10 mg Tablet PER TUBE SCH (09:31)
[2019-02-06] MEDS: Ascorbic Acid 500 mg Chewable Tablet PER TUBE SCH (09:31)
[2019-02-06] MEDS: Multivitamin W/ Minerals 1 TAB PER TUBE SCH (09:31)
[2019-02-06] MEDS: Folic Acid 1 MG TAB PER TUBE SCH (09:31)
[2019-02-06] MEDS: Aspirin 81 mg Enteric Coated Tablet PER TUBE SCH (09:31)
[2019-02-06] MEDS: Senokot S 8.6-50 MG TAB PER TUBE SCH (09:32)
[2019-02-06] MEDS: Dorzolamide HCl 2% Ophth Soln 10 ml Bottle EA EYE SCH (09:34)
[2019-02-06] MEDS: Brimonidine Tartrate 0.2% Ophth Soln 5 ml Bottle EA EYE SCH (09:34)
[2019-02-06 15:04] VITALS: BP 122/75; TEMP 96.2
--- NOTE | 2019-02-07 04:48 | DIS ---
DATE OF ADMISSION: 01/17/2019 DATE OF DISCHARGE: 02/06/2019 PRINCIPAL DIAGNOSIS: Right hip fracture. SECONDARY DIAGNOSES: 1. Hypertension. 2. Atrial fibrillation. 3. History of recurrent aspiration. 4. Frequent urinary tract infection secondary to BPH. 5. History of cerebrovascular accident. 6. Macular degeneration. 7. Gastroesophageal reflux disease. 8. History of left knee replacement. 9. History of left carotid endarterectomy. 10. Bilateral cataract extraction. 11. PEG tube placement. COMPLICATIONS: None. ADVERSE REACTIONS: None. PROCEDURES: None. CONSULTATIONS: None except PT/OT. HOSPITAL COURSE: The patient was admitted by Dr. Noah Asher on 01/17 after suffering a right femur fracture, requiring right hemiarthroplasty. He was admitted here for therapy. He has improved some, but not enough where he could go home and arrangements have been made for him to go to a local assisted living facility called [facility] with Home Health. This was all arranged by Dr. Asher. This is the second day I am seeing the patient. His potassium has been running low and I have asked them to give him an extra dose of potassium 20 mEq daily. He has been on Rocephin until Saturday and I am wondering whether that had played a role in his hypokalemia. I also advised his to make sure they recheck his basic metabolic panel on Saturday. His blood pressures on review have also been running high, so I have started him on lisinopril 5 mg in the morning and a prescription for that along with the amlodipine 10 mg has been sent to [facility]. PHYSICAL EXAMINATION: VITAL SIGNS: On the day of discharge, he was afebrile, heart rate 74, respirations 18, oxygen saturation 94% on room air, blood pressure was 164/73. CARDIOVASCULAR: S1, S2 plus. RESPIRATORY: Normal vesicular breath sounds. ABDOMEN: Soft. Nontender. Bowel sounds heard in all quadrants. EXTREMITIES: Without cyanosis, clubbing. Hip incision is healthy. CENTRAL NERVOUS SYSTEM: Awake and responsive. Significant deconditioning, significant , and dysarthria noted. LABORATORY VALUES: Sodium 140, potassium 3.3, BUN and creatinine are 21 and 1.27, potassium was 3.1 yesterday. DISCHARGE MEDICATIONS: 1. Tylenol 1000 mg q.6 p.r.n. 2. Norvasc 10 mg daily. 3. Ecotrin 81 mg daily. 4. Lipitor 10 mg daily. 5. Alphagan eye drops to each eye t.i.d. 6. daily p.r.n. 7. Trusopt 2% ophthalmic solution one drop to each eye t.i.d. 8. Lexapro 10 mg daily. 9. Pepcid 20 mg daily. 10. Proscar 5 mg daily. 11. Folvite 1 mg daily. 12. Zestril 5 mg daily, which was just started this morning. 13. MiraLAX 17 g in 8 ounces of water daily as needed. 14. Potassium 20 mEq b.i.d. 15. Risperidone 0.25 mg at bedtime. 16. Flomax 0.4 mg daily. 17. Tramadol 50 mg q.4 p.r.n. Nursing reviewed the list with his and the only medicines she needs are the lisinopril and amlodipine, which has been sent to [facility]. She does have the potassium 10 mEq and she apparently has a lot of it, so she is going to advice the assisted living facility to give him 2 pills twice daily. She was also reminded to make sure she gets a basic metabolic panel checked on Saturday. Instructions will be sent to the assisted living facility. ACTIVITY: As tolerated. Aspiration precautions. The patient will be followed by Dr. Asher. Home health orders have been sent by [facility]. was advised to call me with any questions or concerns. Total time spent on this discharge, 35 minutes. Job ID: [id number]
== END 2019-02-06 15:08 | DRG 536 ==
LOC: NAV ACUTE 16:51
PROVIDERS: ADMIT Internal Medicine; ATTEND Internal Medicine
DX: S72.011A Unspecified intracapsular fracture of right femur, initial encounter for closed fracture (principal); I69.351 Hemiplegia and hemiparesis following cerebral infarction affecting right dominant side; N39.0 Urinary tract infection, site not specified; W19.XXXA Unspecified fall, initial encounter; I48.0 Paroxysmal atrial fibrillation; N40.1 Benign prostatic hyperplasia with lower urinary tract symptoms; R33.8 Other retention of urine; I11.0 Hypertensive heart disease with heart failure; I50.9 Heart failure, unspecified; K21.9 Gastro-esophageal reflux disease without esophagitis; Z66 Do not resuscitate; B96.20 Unspecified Escherichia coli [E. coli] as the cause of diseases classified elsewhere; H35.30 Unspecified macular degeneration; R53.1 Weakness; E87.6 Hypokalemia; R00.1 Bradycardia, unspecified; T50.905A Adverse effect of unspecified drugs, medicaments and biological substances, initial encounter; I95.2 Hypotension due to drugs; R45.1 Restlessness and agitation; R53.83 Other fatigue; E86.0 Dehydration
CPT/HCPCS: 36415; 70450; 76856; 80048; 80053; 81001; 84134; 85025; 87077; 87086; 87186; J0696; J3490; J7050